=== PATIENT | female | born 1960 | race Caucasian/White ===

== ENCOUNTER → 2017-02-18 | Outpatient (REF) | payer BC ==
[2017-02-18 13:12] LABS: PERCENT SATURATION 40.6 % (13.2-37.4); TOTAL IRON BINDING CAPACITY 313 UG/DL (250-450)
[2017-02-20 00:06] LABS: Lyme Disease IgG/IgM Antibodie <0.91 ISR (0.00-0.90); Lyme Disease IgM Ab Quantitati <0.80 index (0.00-0.79)
== END ==
LOC: M LAB REF 12:06
PROVIDERS: ATTEND Internal Medicine
DX: D64.9 Anemia, unspecified (principal); R53.83 Other fatigue; M25.50 Pain in unspecified joint

== ENCOUNTER → 2017-05-02 | Outpatient (CLI) | payer BC ==
[~2017-05-02] VITALS: Ht 167.6 cm; Wt 64.9 kg
[~2017-05-02] MED LIST: DUEX800T PO; LIDOCAINE 2% INJ 100 MG/5 ML SDV (FOR ANES.) As Ordered ONE; NS 1,000 ML IV ONE; OMEP40CA2 PO; PENN1SOL2 TD; PROPOFOL 200 MG/20 ML VIAL As Ordered ONE; SUCR1TA PO; SUCR1TAB56 PO
--- NOTE | 2017-05-02 11:31 | ROOR ---
Patient Name: Meggan Huff Procedure Date: 05/02/2017 11:10 AM Date of : 1960 Age: 56 Room: [facility] Gender: Female Note Status: Finalized Procedure: Upper Endoscopy + Biopsies Indications: Follow-up of Owens's esophagus Providers: Christian Wilson MD Referring MD: Natasha Bergeron DO Requesting Provider: Medicines: Monitored Anesthesia Care Complications: No immediate complications. Procedure: Pre-Anesthesia Assessment: - The heart rate, respiratory rate, oxygen saturations, blood pressure, adequacy of pulmonary ventilation, and response to care were monitored throughout the procedure. The Endoscope was introduced through the mouth, and advanced to the second part of duodenum. The upper GI endoscopy was accomplished without difficulty. The patient tolerated the procedure well. Findings: The Z-line was irregular and was found 35 cm from the incisors. Multiple biopsies were obtained with cold forceps for evaluation to rule out Owens's Esophagus randomly at the gastroesophageal junction. A small hiatal hernia was present. No other significant abnormalities were identified in a careful examination of the stomach. The exam of the duodenum was otherwise normal. Impression: - Z-line irregular, 35 cm from the incisors. - Small hiatal hernia. - Multiple biopsies were obtained at the gastroesophageal junction. - The examination was otherwise normal. Recommendation: - Patient has a contact number available for emergencies. The signs and symptoms of potential delayed complications were discussed with the patient. Return to normal activities tomorrow. Written discharge instructions were provided to the patient. - High fiber diet. - Discharge patient to home. - Continue present medications. - Await pathology results. - Telephone GI clinic for pathology results in 1 week. - Return to referring physician. - The findings and recommendations were discussed with the patient's family. - Repeat upper endoscopy for surveillance based on pathology results. Christian Wilson MD Christian Wilson MD 05/02/2017 11:31:17 AM This report has been signed electronically. Number of Addenda: 0 Note Initiated On: 05/02/2017 11:10 AM Estimated Blood Loss: Estimated blood loss: none.
[2017-05-02 11:50] VITALS: BP 114/68
== END | disposition home or self-care (01) ==
LOC: M OPP 10:47
PROVIDERS: ATTEND Internal Medicine Gastroenterology
DX: K22.70 Barrett's esophagus without dysplasia (principal); K22.8 Other specified diseases of esophagus; K44.9 Diaphragmatic hernia without obstruction or gangrene; K21.9 Gastro-esophageal reflux disease without esophagitis; M17.11 Unilateral primary osteoarthritis, right knee; M16.12 Unilateral primary osteoarthritis, left hip; M19.041 Primary osteoarthritis, right hand; I73.00 Raynaud's syndrome without gangrene; M75.50 Bursitis of unspecified shoulder; M94.0 Chondrocostal junction syndrome [Tietze]; Z79.899 Other long term (current) drug therapy

== ENCOUNTER → 2017-06-28 | Outpatient (REF) | payer BC ==
[~2017-06-28] MED LIST changes: -LIDOCAINE 2% INJ 100 MG/5 ML SDV (FOR ANES.) As Ordered ONE; -NS 1,000 ML IV ONE; -PROPOFOL 200 MG/20 ML VIAL As Ordered ONE
[2017-06-28 18:36] LABS: INR 0.9
== END ==
LOC: M LAB REF 16:34
PROVIDERS: ATTEND Internal Medicine
DX: Z01.812 Encounter for preprocedural laboratory examination (principal)

== ENCOUNTER → 2017-09-06 | Outpatient (REF) | payer BC | LOC: M SMT 12:59 | PROVIDERS: ATTEND Nurse Practitioner Women's Health | DX: N39.0 Urinary tract infection, site not specified (principal) ==

== ENCOUNTER → 2017-11-25 | Outpatient (REF) | payer BC ==
[2017-11-25 12:20] LABS: PERCENT SATURATION 38.3 % (13.2-45.0); TOTAL IRON BINDING CAPACITY 300 UG/DL (250-450)
[2017-11-25 12:24] LABS: VITAMIN B12 LEVEL 1173 PG/ML (247-911)
== END ==
LOC: M LAB REF 11:51
DX: R53.83 Other fatigue (principal)
CPT/HCPCS: 83550

== ENCOUNTER → 2018-01-11 | Outpatient (CLI) | payer BC | LOC: M WHC 08:38 | DX: Z12.31 Encounter for screening mammogram for malignant neoplasm of breast (principal) ==

== ENCOUNTER 2018-03-31 08:42 | Day surgery (SDC) | payer BC ==
[2018-03-31] MEDS: NS 1,000 ML IV (09:12)
[2018-03-31] MEDS ORDERED: PROPOFOL 200 MG/20 ML VIAL As Ordered ×2 (09:51→10:03)
== END 2018-03-31 10:41 | disposition home or self-care (01) ==
LOC: M OPP 08:42
DX: R10.13 Epigastric pain (principal); R12 Heartburn; K22.70 Barrett's esophagus without dysplasia; K22.8 Other specified diseases of esophagus; K44.9 Diaphragmatic hernia without obstruction or gangrene; K21.9 Gastro-esophageal reflux disease without esophagitis; K27.9 Peptic ulcer, site unspecified, unspecified as acute or chronic, without hemorrhage or perforation; M19.90 Unspecified osteoarthritis, unspecified site; M54.89 Other dorsalgia; I73.00 Raynaud's syndrome without gangrene; R06.83 Snoring; Z96.641 Presence of right artificial hip joint; Z79.899 Other long term (current) drug therapy; Z80.8 Family history of malignant neoplasm of other organs or systems
CPT/HCPCS: 43239

== ENCOUNTER → 2019-01-03 | Outpatient (REF) | payer BC ==
[2019-01-03 13:43] LABS: PERCENT SATURATION 39.8 % (13.2-45.0)
== END ==
LOC: M LAB REF 12:37
PROVIDERS: ATTEND Internal Medicine
DX: Z83.2 Family history of diseases of the blood and blood-forming organs and certain disorders involving the immune mechanism (principal)

== ENCOUNTER → 2019-01-12 | Outpatient (CLI) | payer BC ==
--- NOTE | 2019-01-12 10:39 | REPMRS ---
Patient History The patient states she had a clinical breast exam in 01/16 No known family history of cancer. Benign ultrasound-guided core biopsy of the right breast. Took estrogen for 3 years. 3D TOMOSYNTHESIS WAS PERFORMED. Digital Woman Screen Mammo: January 12, 2019 - Exam #: [id number] Bilateral CC and MLO view(s) were taken. Technologist: Danielle Puri, Technologist Prior study comparison: January 11, 2018, digital woman screen mammo performed at [facility]. September 21, 2016, digital woman screen mammo performed at [facility]. FINDINGS: The breast tissue is heterogeneously dense. This may lower the sensitivity of mammography. There has been no change in the appearance of the mammogram from the prior studies. There is a moderate amount of residual fibroglandular tissue which is fairly symmetric. There is no interval development of dominant mass, areas of architectural distortion, or clustered microcalcification typical of malignancy. Assessment: BI-RADS/ACR category 1 mammogram. Negative Mammogram. Recommendation Routine screening mammogram in 1 year (for women over age 40). This mammogram was interpreted with the aid of an FDA-approved computer-aided dectection system. Electronically Signed By: Flash Alcaraz MD 01/12/19 1038
== END ==
LOC: M WHC 09:30
PROVIDERS: ATTEND Nurse Practitioner Women's Health
DX: Z12.31 Encounter for screening mammogram for malignant neoplasm of breast (principal); Z92.23 Personal history of estrogen therapy; Z86.018 Personal history of other benign neoplasm

== ENCOUNTER → 2019-06-19 | Outpatient (REF) | payer BC ==
[2019-06-19 11:47] LABS: BASO # 0.1 10^3/uL (0.0-0.2); BASO % 0.7 % (0.0-1.0); EOS # 0.2 10^3/uL (0.0-0.50); EOS % 2.9 % (0.0-3.0); HEMATOCRIT 43.9 % (36.0-47.0); HEMOGLOBIN 14.7 g/dl (12.0-15.5); LYMPH # 2.3 10^3/uL (1.5-4.5); LYMPH % 31.8 % (24.0-44.0); MEAN CORPUSCULAR HGB CONC 33.5 g/dl (32.0-36.5); MEAN CORPUSCULAR VOLUME 98.7 fl (80.0-96.0); MONO # 0.6 10^3/uL (0.0-0.8); MONO % 8.3 % (0.0-5.0); NEUTROPHILS # 4.1 10^3/uL (1.8-7.7); PLATELET COUNT, AUTOMATED 309 10^3/uL (150-450); RED BLOOD COUNT 4.45 10^6/uL (4.00-5.40); WHITE BLOOD COUNT 7.4 10^3/uL (4.0-10.0)
[2019-06-19 12:11] LABS: C REACTIVE PROTEIN QUANTITATIV < 0.30 MG/DL (0.00-0.30); RHEUMATOID FACTOR QUANT < 10.0 IU/ML (<15.0); URIC ACID 4.9 MG/DL (2.6-6.0)
[2019-06-19 12:29] LABS: ERYTHROCYTE SEDIMENTATION RATE 6 mm/hr (0-30)
[2019-06-26 00:06] LABS: ANTINUCLEAR ANTIBODIES DIRECT Negative (Negative); HLA-B27 Negative (.); Lyme Disease IgG/IgM Antibodie <0.91 ISR (0.00-0.90); Lyme Disease IgM Ab Quantitati <0.80 index (0.00-0.79)
== END ==
LOC: M LABDRAW1 09:41
PROVIDERS: ATTEND Physician Assistant Medical
DX: M18.11 Unilateral primary osteoarthritis of first carpometacarpal joint, right hand (principal)

== ENCOUNTER 2019-07-10 08:09 | Outpatient (RCR) | payer BC | END 2019-07-28 | LOC: M OT 08:09 | PROVIDERS: ATTEND Physician Assistant Medical | DX: Z47.89 Encounter for other orthopedic aftercare (principal); M19.041 Primary osteoarthritis, right hand ==

== ENCOUNTER 2019-12-11 09:31 | Emergency (ER) | payer BC ==
[~2019-12-11] VITALS: Ht 167.6 cm; Wt 68.7 kg
[~2019-12-11 09:31] MED LIST changes: -OMEP40CA2 PO; +OMEP40CA97 PO
[2019-12-11 10:48] LABS: BASO # 0.1 10^3/uL (0.0-0.2); BASO % 0.7 % (0.0-1.0); EOS # 0.2 10^3/uL (0.0-0.5); HEMATOCRIT 41.3 % (36.0-47.0); HEMOGLOBIN 14.2 g/dl (12.0-15.5); LYMPH # 2.5 10^3/uL (1.5-5.0); LYMPH % 32.4 % (24.0-44.0); MEAN CORPUSCULAR HEMOGLOBIN 32.4 pg (27.0-33.0); MEAN CORPUSCULAR HGB CONC 34.4 g/dl (32.0-36.5); MEAN CORPUSCULAR VOLUME 94.3 fl (80.0-96.0); MONO # 0.8 10^3/uL (0.0-0.8); MONO % 10.2 % (0.0-5.0); NEUTROPHILS # 4.2 10^3/uL (1.5-8.5); NEUTROPHILS % 54.6 % (36.0-66.0); PLATELET COUNT, AUTOMATED 272 10^3/uL (150-450); RED BLOOD COUNT 4.38 10^6/uL (4.00-5.40); WHITE BLOOD COUNT 7.6 10^3/uL (4.0-10.0)
[2019-12-11 11:08] LABS: ERYTHROCYTE SEDIMENTATION RATE 5 mm/hr (0-30)
[2019-12-11 11:22] LABS: BLOOD UREA NITROGEN 17 MG/DL (7-18); C REACTIVE PROTEIN QUANTITATIV < 0.30 MG/DL (0.00-0.30); CALCIUM LEVEL 9.4 MG/DL (8.5-10.1); CARBON DIOXIDE LEVEL 28 MEQ/L (21-32); CHLORIDE LEVEL 102 MEQ/L (98-107); CK-MB VALUE MASS 1.5 NG/ML (<3.6); CPK CREATINE PHOSPHOKINASE 89 U/L (26-192); CREATININE FOR GFR 0.72 MG/DL (0.55-1.30); GLOMERULAR FILTRATION RATE > 60.0 (>51); GLUCOSE, FASTING 99 MG/DL (70-100); MB/CK RELATIVE INDEX 1.69 (< OR =4); POTASSIUM SERUM 4.4 MEQ/L (3.5-5.1); SODIUM LEVEL 136 MEQ/L (136-145); TROPONIN I < 0.02 NG/ML (< 0.10)
--- NOTE | 2019-12-11 12:09 | REP ---
CHEST, TWO VIEWS: There is no evidence of acute infiltrate. No pleural effusion is seen. The heart is normal in size. The mediastinal silhouette is unremarkable. The visualized osseous structures are intact. IMPRESSION: No acute pulmonary disease. Electronically Signed by Flash Alcaraz MD 12/11/2019 07:21 P
[2019-12-11 12:29] VITALS: BP 101/61
[2019-12-11] MEDS ORDERED: OMEP40CA97 PO (12:30)
--- NOTE | 2019-12-12 10:02 | ECGEPIP ---
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
== END 2019-12-11 12:39 | disposition home or self-care (01) ==
LOC: M ED 10:27
DX: R07.9 Chest pain, unspecified (principal); K21.9 Gastro-esophageal reflux disease without esophagitis

== ENCOUNTER → 2020-01-07 | Outpatient (REF) | payer BC ==
[2020-01-07 13:40] LABS: PERCENT SATURATION 45.9 % (13.2-45.0)
== END ==
LOC: M LAB REF 12:27
PROVIDERS: ATTEND Internal Medicine
DX: Z83.2 Family history of diseases of the blood and blood-forming organs and certain disorders involving the immune mechanism (principal)

== ENCOUNTER → 2020-01-17 | Outpatient (CLI) | payer BC ==
--- NOTE | 2020-01-17 14:13 | REPMRS ---
Patient History The patient states she had a clinical breast exam in December 2019.No known family history of cancer. Benign ultrasound-guided core biopsy of the right breast. Took estrogen for 3 years. Digital Woman Screen Mammo: January 17, 2020 - Exam #: [id number] Bilateral CC and MLO view(s) were taken. Technologist: Ruth Hebert, Technologist Prior study comparison: January 12, 2019, bilateral digital woman screen mammo performed at [facility]. January 11, 2018, digital woman screen mammo performed at [facility]. September 21, 2016, digital woman screen mammo performed at [facility]. FINDINGS: The breast tissue is heterogeneously dense. This may lower the sensitivity of mammography. There is a moderate amount of heterogeneously dense fibroglandular tissue which is fairly symmetric. There is no interval development of dominant mass, architectural distortion, or grouped microcalcification typical of malignancy. There has been no change in the appearance of the mammogram from the prior studies. 3-D tomosynthesis shows no additional findings. Assessment: BI-RADS/ACR category 1 mammogram. Negative Mammogram. Recommendation Routine screening mammogram of both breasts in 1 year (for women over age 40). This patient's Lifetime Breast Cancer RIsk is estimated at 7.1 %. This mammogram was interpreted with the aid of an FDA-approved computer-aided dectection system. Electronically Signed By: Eris Anne MD 01/17/20 4079
== END ==
LOC: M WHC 13:45
PROVIDERS: ATTEND Nurse Practitioner Women's Health
DX: Z12.31 Encounter for screening mammogram for malignant neoplasm of breast (principal)

== ENCOUNTER → 2021-01-08 | Outpatient (REF) | payer BC ==
[2021-01-08 12:22] LABS: PERCENT SATURATION 65.6 % (13.2-45.0)
== END ==
LOC: M LAB REF 11:08
PROVIDERS: ATTEND Internal Medicine
DX: D64.9 Anemia, unspecified (principal)

== ENCOUNTER → 2021-01-20 | Outpatient (CLI) | payer BC ==
--- NOTE | 2021-01-20 09:15 | REPMRS ---
Patient History The patient states she has not had a clinical breast exam in over a year. No known family history of cancer. Benign ultrasound-guided core biopsy of the right breast. Took estrogen for 3 years. Digital Woman Screen Mammo: January 20, 2021 - Exam #: [id number] Bilateral CC and MLO view(s) were taken. Technologist: RT Grupo Prior study comparison: January 17, 2020, bilateral digital woman screen mammo performed at [facility]. January 12, 2019, bilateral digital woman screen mammo performed at [facility]. January 11, 2018, digital woman screen mammo performed at [facility]. FINDINGS: The breast tissue is heterogeneously dense. This may lower the sensitivity of mammography. The Volpara volumetric breast density category is: C. There is a moderate amount of heterogeneously dense fibroglandular tissue which is fairly symmetric. There is no interval development of dominant mass, architectural distortion, or grouped microcalcification typical of malignancy. There has been no change in the appearance of the mammogram from the prior studies. 3-D tomosynthesis shows no additional findings. Assessment: BI-RADS/ACR category 1 mammogram. Negative Mammogram. Recommendation Routine screening mammogram of both breasts in 1 year (for women over age 40). This patient's [facility] Lifetime Breast Cancer RIsk is estimated at 6.9 %. This mammogram was interpreted with the aid of an FDA-approved computer-aided dectection system. Electronically Signed By: Eris Anne MD 01/20/21 0914
== END ==
LOC: M WHC 07:44
PROVIDERS: ATTEND Internal Medicine
DX: Z12.31 Encounter for screening mammogram for malignant neoplasm of breast (principal); Z86.018 Personal history of other benign neoplasm

== ENCOUNTER → 2021-03-03 | Outpatient (CLI) | payer BC ==
--- NOTE | 2021-03-03 12:02 | REP ---
INDICATION: LYMPHADENOPATHY. COMPARISON: None. TECHNIQUE: Multiple sonographic images of the left submandibular area. FINDINGS: In the left submandibular area, adjacent to the submandibular gland, there is an ovoid lesion measuring 1.3 x 1.4 x 0.4 cm with an echo lucent cortex an echogenic center compatible with a lymph node. It is upper normal size. No focal fluid collection or mass otherwise. IMPRESSION: There is an upper normal size lymph node in the left submandibular area. <Electronically signed by Flash Klein > 03/03/21 1159
== END ==
LOC: M RAD 10:59
PROVIDERS: ATTEND Internal Medicine
DX: R59.9 Enlarged lymph nodes, unspecified (principal)

== ENCOUNTER → 2021-03-11 | Outpatient (REF) | payer BC ==
[2021-03-11 19:41] LABS: PERCENT SATURATION 38.2 % (13.2-45.0)
== END ==
LOC: M LAB REF 11:24
PROVIDERS: ATTEND Internal Medicine
DX: Z83.2 Family history of diseases of the blood and blood-forming organs and certain disorders involving the immune mechanism (principal)

== ENCOUNTER → 2021-09-08 | Outpatient (CLI) | payer BC ==
[~2021-09-08] MED LIST changes: +OMEP40CA4 PO; -OMEP40CA97 PO
[2021-09-08 13:23] LABS: PLATELET COUNT, AUTOMATED 285 10^3/uL (150-450)
[2021-09-08 13:39] LABS: INR 0.88; PROTHROMBIN TIME 12.3 SECONDS (12.7-14.5)
[2021-09-08 13:40] LABS: COLLAGEN EPINEPHRINE 78 SECONDS (74-162); PARTIAL THROMBOPLASTIN TIME 25.1 SECONDS (25.9-37.0)
== END ==
LOC: M LAB 11:31
PROVIDERS: ATTEND Physician Assistant
DX: M47.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 without myelopathy or radiculopathy, cervical region (principal)

== ENCOUNTER → 2021-10-02 | Outpatient (CLI) | payer BC ==
[~2021-10-02] MED LIST changes: +D31000TA2 PO; +GREE150C PO; +QUERPOW2 XX; +VITA500C24 PO; +ZINC1TAB2 PO
== END ==
LOC: M LABSMTC 10:26
PROVIDERS: ATTEND Anesthesiology
DX: Z01.818 Encounter for other preprocedural examination (principal); Z11.52 Encounter for screening for COVID-19

== ENCOUNTER 2021-10-07 07:03 | Day surgery (SDC) | payer BC ==
[~2021-10-07] VITALS: Ht 167.6 cm; Wt 66.7 kg
[~2021-10-07 07:03] MED LIST changes: +NS 1,000 ML IV ONE
--- OUTSIDE RECORDS SUMMARY | 2021-10-07 07:06 | CCD | Continuity of Care Document ---
Author Author Meggan WILSON M.D. Organization Unknown Address [address] [place] [address] Phone [phone] Care Team Providers Care Reproduction Technician Name Role Phone Natasha Bergeron DO AUTM [phone] Problems Active Problems Provider Date Owens's esophagus Christian Wilson M.D. Onset: 07/10/20 20 Abdominal pain Christian Wilson M.D. Onset: 04/05/20 17 Social History Type Date Description Comments Sex Unknown ETOH Use Occasionally Tobacco Use Start: Unknown Patient has never smoked Allergies and adverse reactions Description No Known Drug Allergies Medications Active Medications SIG Qnty Indications Ordering Provide r Date Omeprazole 40mg Capsules DR 1 cap by mouth every morning 90caps Christian Wilson M.D. 017 Sucralfate 1gm Tablets Unknown Vitamin C 500mg Capsules Unknown D3 High Potency 25mcg (1000 Ut) Ca psules Unknown Zinc 30mg Capsules Unknown Multiple Vitamin Tablets Unknown Immunizations Description No Information Available Vital Signs Date Vital Result Comment 08/18/2021 12:05pm Height 66 inches 5'6" Weight 148.00 lb BP Systolic 117 mmHg BP Diastolic 70 mmHg Heart Rate 64 /min BMI (Body Mass Index) 23.9 kg/m2 Weight 67.133 kg Body Temperature 96.2 F 07/10/2020 11:51am Height 66 inches 5'6" Weight 150.00 lb Temp 97.2 BP Systolic 118 mmHg BP Diastolic 74 mmHg Heart Rate 60 /min BMI (Body Mass Index) 24.2 kg/m2 Weight 68.040 kg Results Description No Information Available Procedures Description No Information Available Medical Devices Description No Information Available Encounters Description No Information Available Assessments Date Code Description Provider 08/18/2021 K22.70 Owens's esophagus without dysp lasia Christian Wilson M.D. Plan of Treatment Future Appointment(s):* 10/07/2021 10:30 am - Christian Wilson M.D. at Main Office 08/18/2021 - Christian Wilson M.D.* K22.70 Owens's esophagus without dysplasia* Comments:* 61 yo wf who presents for a chronic h/o heartburn/intestinal metaplasia. Last scope in 2018. No c/o abdominal pain, weight loss, change in bowel habits, or rectal bleeding. No family h/o colon cancer. No h/o chest pain, or sob. Plan:1. Egd + biopsies.2. Maintain meds. Functional Status Description No Information Available Mental Status Description No Information Available Referrals Description No Information Available
--- OUTSIDE RECORDS SUMMARY | 2021-10-07 07:06 | CCD | Continuity of Care Document ---
Author Author Meggan HART PA-C Organization Unknown Address [address] [address] Phone [phone] Care Team Providers Care Rag Baler Name Role Phone Natasha Bergeron AUTM [phone] Problems Description No Information Available Social History Type Date Description Comments Sex Unknown ETOH Use Occasionally consumes alcohol Tobacco Use Start: Unknown End: Unknown Patient is a former smoker Allergies, Adverse Reactions, Alerts Description No Known Drug Allergies Medications Active Medications SIG Qnty Indications Ordering Provide r Date Omeprazole 40mg Capsules DR 1 by mouth every day Unknown Vitamin D 2000Unit Tablets 1 by mouth every day Unknown Vitamin C 1000MG Unknown 00 Zinc 50mg Tablets 1 by milli th every day Unknown Immunizations Description No Information Available Vital Signs Date Vital Result Comment 07/07/2021 10:48am Body Temperature 96.4 F Height 66.50 inches 5'6.50" Weight 145.12 lb BMI (Body Mass Index) 23.1 kg/m2 06/19/2019 9:23am Body Temperature 97.0 F Height 66.75 inches 5'6.75" Weight 145.00 lb BMI (Body Mass Index) 22.9 kg/m2 Results Description No Information Available Procedures Date Code Description Status 07/31/2021 16601 Office/Outpatient Established Mo d MDM 30-39 Min Completed 07/17/2021 66681 Office/Outpatient Established Mo d MDM 30-39 Min Completed 07/17/2021 81320 Nerve Conduction 9-10 Studies Co mpleted 07/17/2021 24038 Needle Electromyography,Complete Five Or More Muscles Studied Completed 07/07/2021 87341 Office/Outpatient Established Lo w MDM 20-29 Min Completed 07/07/2021 70563 X-Ray Shoulder Complete Complete d Medical Devices Description No Information Available Encounters Type Date Location Provider Dx Diagnosis Office Visit 07/31/2021 10:00a [place] MALAIKA VasquezC 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, cervical region M50.30 Other cervical disc degenera tion, unsp cervical region M54.12 Radiculopathy, cervical jc on R20.2 Paresthesia of skin Office Visit 07/07/2021 10:30a [place] Razia Hart PA-C M79.1 8 Myalgia, other site M47.892 Other spondylosis, cervical region M50.31 Other cervical disc degenera tion, high cervical region M50.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 , mid-cervical rgn, unsp level Assessments Date Code Description Provider 07/31/2021 M47.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 without myelopathy or radiculopathy, cervical region Razia Hart PA-C 07/31/2021 M50.30 Other cervical disc degeneration , unspecified cervical region Razia Hart PA-C 07/31/2021 M54.12 Radiculopathy, cervical region S yl Kennedy Hart PA-C 07/31/2021 R20.2 Paresthesia of skin Razia mg PA-C 07/17/2021 M54.12 Radiculopathy, cervical region H yael Macias MD 07/17/2021 M47.892 Other spondylosis, cervical jc on Fidencio Macias MD 07/17/2021 M50.30 Other cervical disc degeneration , unspecified cervical region Fidencio Macias MD 07/17/2021 R20.2 Paresthesia of skin Fidencio bolivar MD 07/07/2021 M79.18 Myalgia, other site PAWAN Joe-C 07/07/2021 M47.892 Other spondylosis, cervical jc on Razia Kennedy Hart PA-C 07/07/2021 M50.31 Other cervical disc degeneration , high cervical region Razia Hart PA-C 07/07/2021 M50.320 Other cervical disc degeneration, mid-cervical region, unspecified level Razia Hart PA-C Plan of Treatment 07/07/2021 - Razia Hart PA-C* M79.18 Myalgia, other site* Follow up:* after EMG results with [facility]. * M47.892 Other spondylosis, cervical region * M50.31 Other cervical disc degeneration, high cervical region * M50.320 Other cervical disc degeneration, mid-cervical region, unspecified level Functional Status Description No Information Available Mental Status Description No Information Available Referrals Refer to Reason for Referral Status Appt Date Razia Hart PA-C EMG NO AUTH REQUIRED TO SCHEDULING NT Cr eated [facility] [facility], [address] [place] [address] [phone]
--- OUTSIDE RECORDS SUMMARY | 2021-10-07 07:06 | CCD | Continuity of Care Document ---
Author Author Meggan HART PA-C Organization Unknown Address [facility] [address] Phone [phone] Care Team Providers Care Apron Trimmer Name Role Phone Natasha Bergeron AUTM [phone] Problems Description No Information Available Social History [...] Information Available Procedures Date Code Description Status 07/17/2021 56903 Office/Outpatient Established Mo d MDM 30-39 Min Completed 07/17/2021 16834 Nerve Conduction 9-10 Studies Co mpleted 07/17/2021 49085 Needle Electromyography,Complete Five Or More Muscles Studied Completed 07/07/2021 37668 Office/Outpatient Established Lo w MDM 20-29 Min Completed 07/07/2021 18957 X-Ray Shoulder Complete Complete d Medical Devices Description No Information Available Encounters Type Date Location Provider Dx Diagnosis Office Visit 07/07/2021 10:30a [place] Razia Hart PA-C M79.1 8 Myalgia, other site M47.892 Other spondylosis, cervical region M50.31 Other cervical disc degenera tion, high cervical region M50.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 , mid-cervical rgn, unsp level Assessments Date Code Description Provider 07/31/2021 M54.12 Radiculopathy, cervical region S PAWAN Caicedo-C 07/31/2021 M47.892 Other spondylosis, cervical jc on PAWAN Vasquez-C 07/31/2021 M50.30 Other cervical disc degeneration , unspecified cervical region MALAIKA VasquezC 07/31/2021 R20.2 Paresthesia of skin MALAIKA JoeC 07/17/2021 M54.12 Radiculopathy, cervical region H yael Macias MD 07/17/2021 M47.892 Other spondylosis, cervical jc on Fidencio Macias MD 07/17/2021 M50.30 Other cervical disc degeneration , unspecified cervical region Fidencio Macias MD 07/17/2021 R20.2 Paresthesia of skin Fidencio bolivar MD 07/07/2021 M79.18 Myalgia, other site MALAIKA JoeC 07/07/2021 M47.892 Other spondylosis, cervical jc on MALAIKA VasquezC 07/07/2021 M50.31 Other cervical disc degeneration , high cervical region Razia Hart PAMiryamC 07/07/2021 M50.320 Other cervical disc degeneration, mid-cervical region, unspecified level Razia Hart PA-C Plan of Treatment 07/31/2021 - Razia Hart PA-C* M54.12 Radiculopathy, cervical region* New Orders:* HHH Injections, Ordered: 07/31/21 * Follow up:* with [facility] after hhh injections * M47.892 Other spondylosis, cervical region * M50.30 Other cervical disc degeneration, unspecified cervical region * R20.2 Paresthesia of skin Functional Status Description No Information Available Mental Status Description No Information Available Referrals Refer to Dr Reason for Referral Status Appt Date Razia Hart, VICTOR MANUEL EMG NO AUTH REQUIRED TO SCHEDULING NT Cr eated [address] [facility], [address] [place] [address] [phone]
--- OUTSIDE RECORDS SUMMARY | 2021-10-07 07:06 | CCD | Continuity of Care Document ---
Author Author Meggan HART PA-C Organization Unknown Address [address] [address] Phone [phone] Care Team Providers Care Sale Professional Digital Marketing Name Role Phone Natasha Bergeron DO AUTM [phone] Problems Description No Information Available Social History Type Date Description Comments Sex Unknown ETOH Use Occasionally consumes alcohol Tobacco Use Start: Unknown End: Unknown Patient is a former smoker Allergies and adverse reactions Description No Known Drug Allergies Medications Active Medications SIG Qnty Indications Ordering Provide r Date Valium 5mg Tablets take one half hour prior to mri..may repeat in 30 minutes if no effect..do not drive to or from mri 2tabs M47.812 Kar Moreno MD 10/02/[address] 1 by mouth every day Unknown Vitamin D 2000Unit Tablets 1 by mouth every day Unknown Vitamin C 1000MG Unknown 00 Zinc 50mg Tablets 1 by milli th every day Unknown Immunizations Description No Information Available Vital Signs Date Vital Result Comment 09/09/2021 9:26am Body Temperature 97.8 F 07/07/2021 10:48am Body Temperature 96.4 F Height 66.50 inches 5'6.50" Weight 145.12 lb BMI (Body Mass Index) 23.1 kg/m2 Results Test Acquired Date Facility Test Result H/L Range Note Laboratory test finding 09/09/2021 In House Covid Rapid Testing Negative 1 Laboratory test finding 09/08/2021 [facility] [address] [place] [address] [phone])- - Partial Thromboplastin Time <pending> Laboratory test finding 09/08/2021 [facility] [address] [place] [address] (315)- - Platelet Count, Automated 285 10 Normal 150-450 Platelet Function Analysis 09/08/2021 [facility] [address] [place] [address] (315)- - Collagen Epinephrine 78 seconds Normal 74-162 2 PT & Aptt 09/08/2021 [facility] [address] [place] [address] (315)- - Prothrombin Time 12.3 seconds Normal 12.7-14.5 Inr 0.88 Normal 3 Partial Thromboplastin Time 25.1 seconds Normal 25.9-37.0 1 [employer] Covid-19 Antigen T est Lot # [id number] 09/09/21 at 10:35am 2 Results may be affected by p latelet counts less than 150,000/mL or hematocrits less than 35%. If COL/EPI is NORMAL, COL/ADP is not performed. Result Interpretation: COL/EPI COL/ADP NORMAL NORMAL NORMAL ASA ABNORMAL NORMAL vWD ABNORMAL NORMAL GLANZMANN'S ABNORMAL ABNORMAL THROMBASTHENIA POSSIBLE DRUG ABNORMAL ABNORMAL EFFECT 3 THERAPUTIC HUMAN INR VALUES INDICATIONS NORMAL RANGES PROPHYLAXIS/TREATMENT OF: VENOUS THROMBOSIS 2.0-3.0 PULMONARY EMBOLISM 2.0-3.0 PREVENTION OF SYSTEMIC EMBOLISM FROM: TISSUE HEART VALVES 2.0-3.0 ACUTE MYOCARDIAL INFARCTION 2.0-3.0 VALVULAR HEART DISEASE 2.0-3.0 ATRIAL FIBRILLATION 2.0-3.0 MECHANICAL VALVES(HIGH RISK) 2.5-3.5 RECURRENT MYOCARDIAL INFARCTION 2.5-3.5 Procedures Date Code Description Status 09/14/2021 48108 Moderate Sedation Services; Same Phys Each Additional 15 Mins Completed 09/14/2021 74613 Moderate Sedation Se rvices; Same Phys Intl 15 Mins; PT >= 5 Years Completed 09/14/2021 93493 Injec(S),Diag Or The r Agent,Paravert Fac JT W/Imag Cerv Or Thorac Completed 07/31/2021 60236 Office/Outpatient Established Mo d MDM 30-39 Min Completed 07/17/2021 87046 Office/Outpatient Established Mo d MDM 30-39 Min Completed 07/17/2021 20115 Nerve Conduction 9-10 Studies Co mpleted 07/17/2021 75636 Needle Electromyography,Complete Five Or More Muscles Studied Completed 07/07/2021 40957 Office/Outpatient Established Lo w MDM 20-29 Min Completed 07/07/2021 81900 X-Ray Shoulder Complete Complete d Medical Devices Description No Information Available Encounters Type Date Location Provider Dx Diagnosis Office Visit 07/31/2021 10:00a [place] Razia Hart PA-C 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, cervical region M50.30 Other cervical disc degenera tion, unsp cervical region M54.12 Radiculopathy, cervical jc on R20.2 Paresthesia of skin Office Visit 07/07/2021 10:30a [place] Razia Hart PA-C M79.1 8 Myalgia, other site M47.892 Other spondylosis, cervical region M50.31 Other cervical disc degenera tion, high cervical region M50.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 , mid-cervical rgn, unsp level Assessments Date Code Description Provider 10/02/2021 M47.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 without myelopathy or radiculopathy, cervical region Razia Hart PA-C 09/14/2021 M47.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 without myelopathy or radiculopathy, cervical region Fidencio Macias MD 09/09/2021 Z01.818 Encounter for other preprocedura l examination Fidencio Macias MD 09/09/2021 Z01.818 Encounter for other preprocedura l examination Lab 09/09/2021 Z20.828 Contact with and (herring spected) exposure to other viral communicable diseases Fidencio Macias MD 09/09/2021 Z20.828 Contact with and (herring spected) exposure to other viral communicable diseases Lab 09/09/2021 Z20.828 Contact with and (herring spected) exposure to other viral communicable diseases Razia Hart PA-C 07/31/2021 M47.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 without myelopathy or radiculopathy, cervical region Razia Hart PA-C 07/31/2021 M50.30 Other cervical disc degeneration , unspecified cervical region Razia Hart PA-C 07/31/2021 M54.12 Radiculopathy, cervical region S devonte Hart PA-C 07/31/2021 R20.2 Paresthesia of skin Razia mg PA-C 07/17/2021 M54.12 Radiculopathy, cervical region H yale Macias MD 07/17/2021 M47.892 Other spondylosis, cervical jc on Fidencio Macias MD 07/17/2021 M50.30 Other cervical disc degeneration , unspecified cervical region Fidencio Macias MD 07/17/2021 R20.2 Paresthesia of skin Fidencio bolivar MD 07/07/2021 M79.18 Myalgia, other site Razia mg PA-C 07/07/2021 M47.892 Other spondylosis, cervical jc on Razia Hart PA-C 07/07/2021 M50.31 Other cervical disc degeneration , high cervical region Razia Hart PA-C 07/07/2021 M50.320 Other cervical disc degeneration, mid-cervical region, unspecified level Razia Hart PA-C Plan of Treatment 10/02/2021 - Razia Hart PA-C* M47.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 without myelopathy or radiculopathy, cervical region* New Medication:* Valium 5 mg - take one half hour prior to mri..may repeat in 30 minutes if no effect..do not drive to or from mri * New Xrays:* MRI Cervical Spine, Ordered: 10/02/21 * Follow up:* after cervical mri results with [facility] *pt is new to [facility]* Functional Status Description No Information Available Mental Status Description No Information Available Referrals Refer to Dr Reason for Referral Status Appt Date Razia Hart PA-C ZELALEM INJ([id number]) PER EVICORE H KATHY APPROVED TO SURGERY NT Created [address] [place] [address] [phone] Razia Hart PA-C EMG NO AUTH REQUIRED TO SCHEDULING NT Cr eated [address] [place] [address] [phone]
--- OUTSIDE RECORDS SUMMARY | 2021-10-07 07:06 | CCD | Continuity of Care Document ---
Author Author Meggan SCOTT Organization Unknown Address [address] [facility] [address] [place] [address] Phone [phone] Care Team Providers Care Manager Marketing Sales Name Role Phone Natasha Scott DO AUTM Unavailable Fidencio Macias MD AUTM [phone] Problems Active Problems Provider Date Joint pain Natasha Scott DO Onset: 01/19/2013 Social History Type Date Description Comments Sex Unknown ETOH Use Drinks 2 Alcoholic Beverages Per Week Tobacco Use Start: Unknown End: Unknown Patient is a former smoker QUIT AT AGE 46 X 25YRS 1/2 -1 PACK A DAY Allergies and adverse reactions Description No Known Drug Allergies Medications Active Medications SIG Qnty Indications Ordering Provide r Date Fexofenadine HCL 180mg Tablets 1 by mouth every day 30tabs Natasha Scott DO 02/19/2021 Tylenol 8 Hour Arthritis Pain 650mg Tablets ER 1 by mouth as needed every 8 hours 90tabs Natasha Scott DO 01/07/2020 Collagen With Vitamin C 1 po qd Natasha Scott DO 01/03/2019 Vitamin D3 2000Unit Capsules 1 by mouth every day Natasha Scott DO 01/03/[address] 1 by mouth every day as needed 90caps Natasha Scott DO 11/25/2017 Carafate 1gm Tablets one tablet daily before meals as needed Unknown 0 Immunizations CPT Code Status Date Vaccine Reaction Lot # [id number] Given 06/29/2012 Adacel- Tetanus Diphtheria Pertussis [id number] Given 06/27/2012 PPD 06/29/12 PPD READING 0MM / PC [id number] Refused 11/05/2013 Fluvirin Virus Vaccine Vital Signs Date Vital Result Comment 02/19/2021 8:19am BP Systolic 102 mmHg BP Diastolic 70 mmHg Height 66.5 inches 5'6.50" Weight 151.00 lb BMI (Body Mass Index) 24.0 kg/m2 01/08/2021 8:00am BP Systolic 110 mmHg BP Diastolic 60 mmHg Heart Rate 60 /min Height 66.5 inches 5'6.50" Weight 152.00 lb O2 % BldC Oximetry 96 % RM Air BMI (Body Mass Index) 24.2 kg/m2 Results Test Acquired Date Facility Test Result H/L Range Note Laboratory test finding 09/08/2021 [facility] [address] [place] [address] [phone] Platelet Count, Automated 285 10 Normal 150-45 0 PT & Aptt 09/08/2021 [facility] nter [address] [place] [address] [phone] Prothrombin Time 12.3 seconds Normal 12.7-14.5 Inr 0.88 Normal 1 Partial Thromboplastin Time 25.1 seconds Normal 25.9-37.0 Platelet Function Analysis 09/08/2021 [facility] [address] [place] [address] [phone] Collagen Epinephrine 78 seconds Normal 74-162 2 1 THERAPUTIC HUMAN INR VALUES INDICATIONS NORMAL RANGES PROPHYLAXIS/TREATMENT OF: VENOUS THROMBOSIS 2.0-3.0 PULMONARY EMBOLISM 2.0-3.0 PREVENTION OF SYSTEMIC EMBOLISM FROM: TISSUE HEART VALVES 2.0-3.0 ACUTE MYOCARDIAL INFARCTION 2.0-3.0 VALVULAR HEART DISEASE 2.0-3.0 ATRIAL FIBRILLATION 2.0-3.0 MECHANICAL VALVES(HIGH RISK) 2.5-3.5 RECURRENT MYOCARDIAL INFARCTION 2.5-3.5 2 Results may be affected by p latelet counts less than 150,000/mL or hematocrits less than 35%. If COL/EPI is NORMAL, COL/ADP is not performed. Result Interpretation: COL/EPI COL/ADP NORMAL NORMAL NORMAL ASA ABNORMAL NORMAL vWD ABNORMAL NORMAL GLANZMANN'S ABNORMAL ABNORMAL THROMBASTHENIA POSSIBLE DRUG ABNORMAL ABNORMAL EFFECT Procedures Date Code Description Status 01/20/2021 24744312 Mammogram Completed 01/24/2019 573841475 Diabetic Retinal Eye Exam Comple radha 01/12/2019 88127372 Mammogram Completed 09/21/2016 [id number] Mammogram Completed 12/04/2014 87188753 Colonoscopy Completed Medical Devices Description No Information Available Encounters Description No Information Available Assessments Description No Information Available Plan of Treatment Future Appointment(s):* 01/14/2022 8:00 am - Natasha Scott DO at [facility] 02/19/2021 - Natasha Scott DO* R59.1 Generalized enlarged lymph nodes * I73.00 Raynaud's syndrome without gangrene * K21.9 Gastro-esophageal reflux disease without esophagitis * E78.5 Hyperlipidemia, unspecified * R73.01 Impaired fasting glucose * J30.9 Allergic rhinitis, unspecified * All * New Medication:* Fexofenadine HCL 180 mg - 1 by mouth every day Functional Status Description No Information Available Mental Status Description No Information Available Referrals Description No Information Available
--- OUTSIDE RECORDS SUMMARY | 2021-10-07 07:06 | CCD | Continuity of Care Document ---
Author Author Meggan ZAMUDIO MD Organization Unknown Address [address] [place] [address], [address] [address] Phone [phone] Care Team Providers Care Nail Technician Teacher Name Role Phone Natasha Bergeron DO AUTM [phone] Problems Description No Information Available Social History [...] Testing Negative 1 Laboratory test finding 09/08/2021 [facility] [address] [place] [address] (315)- - Partial Thromboplastin Time <pending> Laboratory test finding 09/08/2021 [facility] [address] [place] [address] (315)- - Platelet Count, Automated 285 10 Normal 150-450 Platelet Function Analysis 09/08/2021 [facility] [address] [place] [address] (315)- - Collagen Epinephrine 78 seconds Normal 74-162 2 PT & Aptt 09/08/2021 [facility] [address] [place] [address] (315)- - Prothrombin Time 12.3 seconds Normal 12.7-14.5 Inr 0.88 Normal 3 Partial Thromboplastin Time 25.1 seconds Normal 25.9-37.0 1 [employer] Covid-19 Antigen T est Lot # [id number] 09/09/21 at 10:35am 2 Results may be [...] INFARCTION 2.5-3.5 Procedures Date Code Description Status 07/31/2021 54744 Office/Outpatient Established Mo d MDM 30-39 Min Completed 07/17/2021 97886 Office/Outpatient Established Mo d MDM 30-39 Min Completed 07/17/2021 68990 Nerve Conduction 9-10 Studies Co mpleted 07/17/2021 47435 Needle Electromyography,Complete Five Or More Muscles Studied Completed 07/07/2021 89225 Office/Outpatient Established Lo w MDM 20-29 Min Completed 07/07/2021 57806 X-Ray Shoulder Complete Complete d Medical Devices Description No Information Available Encounters Type Date Location Provider Dx Diagnosis Office Visit 07/31/2021 10:00a [place] Ch PA-C 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, cervical region M50.30 Other cervical disc degenera tion, unsp cervical region M54.12 Radiculopathy, cervical jc on R20.2 Paresthesia of skin Office Visit 07/07/2021 10:30a [place] Razia Ch PA-C M79.1 8 Myalgia, other site M47.892 Other spondylosis, cervical region M50.31 Other cervical disc degenera tion, high cervical region M50.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 , mid-cervical rgn, unsp level Assessments Date Code Description Provider 09/09/2021 Z01.818 Encounter for other preprocedura l examination Fidencio Zamudio MD 09/09/2021 Z01.818 Encounter for other preprocedura l examination Lab 09/09/2021 Z20.828 Contact with and (herring spected) exposure to other viral communicable diseases Fidencio Zamudio MD 09/09/2021 Z20.828 Contact with and (herring spected) exposure to other viral communicable diseases Lab 09/09/2021 Z20.828 Contact with and (herring spected) exposure to other viral communicable diseases PAWAN Vasquez-C 07/31/2021 M47.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 without myelopathy or radiculopathy, cervical region Razia Kennedy Ch PA-C 07/31/2021 M50.30 Other cervical disc degeneration , unspecified cervical region Razia Kennedy Ch PA-C 07/31/2021 M54.12 Radiculopathy, cervical region S heryl Kennedy Ch PA-C 07/31/2021 R20.2 Paresthesia of skin PAWAN Joe-C 07/17/2021 M54.12 Radiculopathy, cervical region H yael Zamudio MD 07/17/2021 M47.892 Other spondylosis, cervical jc on Fidencio Zamudio MD 07/17/2021 M50.30 Other cervical disc degeneration , unspecified cervical region Fidencio Zamudio MD 07/17/2021 R20.2 Paresthesia of skin Fidencio bolivar MD 07/07/2021 M79.18 Myalgia, other site MALAIKA JoeC 07/07/2021 M47.892 Other spondylosis, cervical jc on Razia Ch PA-C 07/07/2021 M50.31 Other cervical disc degeneration , high cervical region Razia Ch PA-C 07/07/2021 M50.320 Other cervical disc degeneration, mid-cervical region, unspecified level Razia Ch PA-C Plan of Treatment Future Appointment(s):* 10/02/2021 10:45 am - Razia Ch PA-C at [place] 07/31/2021 - Razia Ch PA-C* M47.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 without myelopathy or radiculopathy, cervical region * M50.30 Other cervical disc degeneration, unspecified cervical region * M54.12 Radiculopathy, cervical region* Follow up:* with [facility] after hhh injections * R20.2 Paresthesia of skin Functional Status Description No Information Available Mental Status Description No Information Available Referrals Refer to Dr Reason for Referral Status Appt Date Razia Ch PA-C ZELALEM INJ([id number]) PER EVICORE H KATHY APPROVED TO SURGERY NT Created [address] [facility], [address] [place] [address] [phone] Razia Ch PA-C EMG NO AUTH REQUIRED TO SCHEDULING NT Cr eated [address] [facility], [facility] [address] [place] [address] [phone]
--- OUTSIDE RECORDS SUMMARY | 2021-10-07 07:06 | CCD | Continuity of Care Document ---
Author Author Meggan Shea Organization Unknown Address [address] [address] Phone [phone] Care Team Providers Care Fruit And Vegetable Factory Worker Name Role Phone Natasha Bergeron AUTM [phone] Problems Description No Information Available Social History [...] Testing Negative 1 Laboratory test finding 09/08/2021 [facility] [address] [place] [address] (315)- - Partial Thromboplastin Time <pending> Laboratory test finding 09/08/2021 [facility] [address] [place] [address] (315)- - Platelet Count, Automated 285 10 Normal 150-450 Platelet Function Analysis 09/08/2021 [facility] [address] [place] [address] (315)- - Collagen Epinephrine 78 seconds Normal 74-162 2 PT & Aptt 09/08/2021 [facility] [address] [place] [address] (315)- - Prothrombin Time 12.3 seconds Normal 12.7-14.5 Inr 0.88 Normal 3 Partial Thromboplastin Time 25.1 seconds Normal 25.9-37.0 1 [employer] Covid-19 Antigen T est Lot # [id number] 09/09/21 at 10:35am 2 Results may be [...] 2.5-3.5 Procedures Date Code Description Status 07/31/2021 76783 Office/Outpatient Established Mo d MDM 30-39 Min Completed 07/17/2021 50825 Office/Outpatient Established Mo d MDM 30-39 Min Completed 07/17/2021 03006 Nerve Conduction 9-10 Studies Co mpleted 07/17/2021 71037 Needle Electromyography,Complete Five Or More Muscles Studied Completed 07/07/2021 11172 Office/Outpatient Established Lo w MDM 20-29 Min Completed 07/07/2021 63905 X-Ray Shoulder Complete Complete d Medical Devices Description No Information Available Encounters Type Date Location Provider Dx Diagnosis Office Visit 07/31/2021 10:00a [place] Ch PA-C 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, cervical region M50.30 Other cervical disc degenera tion, unsp cervical region M54.12 Radiculopathy, cervical jc on R20.2 Paresthesia of skin Office Visit 07/07/2021 10:30a [place] Razia Ch PA-C M79.1 8 Myalgia, other [...] exposure to other viral communicable diseases Razia Ch PA-C 07/31/2021 M47.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 without myelopathy or radiculopathy, cervical region Razia Kennedy Ch, PA-C 07/31/2021 M50.30 Other cervical disc degeneration , unspecified cervical region Razia Ch PA-C 07/31/2021 M54.12 Radiculopathy, cervical region S heryl Kennedy Ch, PA-C 07/31/2021 R20.2 Paresthesia of skin Razia [...] Ch PA-C Plan of Treatment Future Appointment(s):* 09/24/2021 2:15 pm - Steve Mcclain at [place] * 09/14/2021 8:30 am - Fidencio Macias MD at [facility] 07/31/2021 - Razia Ch PA-C* M47.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 [...] Status Appt Date Razia Ch PA-C ZELALEM INJ([id number]) PER JEMMA Castro KATHY APPROVED TO SURGERY NT Created [address] [place] [address], [address] [address] [phone] Razia Ch PA-C EMG NO AUTH REQUIRED TO SCHEDULING NT Cr eated [address] [place] [address] [phone]
--- OUTSIDE RECORDS SUMMARY | 2021-10-07 07:06 | CCD | Continuity of Care Document ---
Author Author Meggan ZAMUDIO MD Organization Unknown Address [address] [place] [address], [address] [address] Phone [phone] Care Team Providers Care Marble Setter Helper Name Role Phone Natasha Bergeron DO AUTM [phone] Problems Description No Information Available Social History [...] Testing Negative 1 Laboratory test finding 09/08/2021 [facility] [address] [place] [address] (315)- - Partial Thromboplastin Time <pending> Laboratory test finding 09/08/2021 [facility] [address] [place] [address] (315)- - Platelet Count, Automated 285 10 Normal 150-450 Platelet Function Analysis 09/08/2021 [facility] [address] [place] [address] (315)- - Collagen Epinephrine 78 seconds Normal 74-162 2 PT & Aptt 09/08/2021 [facility] [address] [place] [address] (315)- - Prothrombin Time 12.3 seconds Normal 12.7-14.5 Inr 0.88 Normal 3 Partial Thromboplastin Time 25.1 seconds Normal 25.9-37.0 1 [employer] Covid-19 Antigen T est Lot # [id number] 09/09/21 at 10:35am 2 Results may be [...] 2.5-3.5 Procedures Date Code Description Status 09/14/2021 90648 Moderate Sedation Services; Same Phys Each Additional 15 Mins Completed 09/14/2021 72140 Moderate Sedation Se rvices; Same Phys Intl 15 Mins; PT >= 5 Years Completed 09/14/2021 11991 Injec(S),Diag Or The r Agent,Paravert Fac JT W/Imag Cerv Or Thorac Completed 07/31/2021 36835 Office/Outpatient Established Mo d MDM 30-39 Min Completed 07/17/2021 14648 Office/Outpatient Established Mo d MDM 30-39 Min Completed 07/17/2021 48246 Nerve Conduction 9-10 Studies Co mpleted 07/17/2021 19516 Needle Electromyography,Complete Five Or More Muscles Studied Completed 07/07/2021 88484 Office/Outpatient Established Lo w MDM 20-29 Min Completed 07/07/2021 11250 X-Ray Shoulder Complete Complete d Medical Devices Description No Information Available Encounters Type Date Location Provider Dx Diagnosis Office Visit 07/31/2021 10:00a [place] Ch PA-C 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, cervical region M50.30 Other cervical disc degenera tion, unsp cervical region M54.12 Radiculopathy, cervical jc on R20.2 Paresthesia of skin Office Visit 07/07/2021 10:30a [place] Razia Ch PA-C M79.1 8 Myalgia, other site M47.892 Other spondylosis, cervical region M50.31 Other cervical disc degenera tion, high cervical region M50.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 , mid-cervical rgn, unsp level Assessments Date Code Description Provider 09/14/2021 M47.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 without myelopathy or radiculopathy, cervical region Fidencio Zamudio MD 09/09/2021 Z01.818 Encounter for [...] without myelopathy or radiculopathy, cervical region Razia Ch PA-C 07/31/2021 M50.30 Other cervical disc degeneration , unspecified cervical region Razia Ch PA-C 07/31/2021 M54.12 Radiculopathy, cervical region S devonte Ch PA-C 07/31/2021 R20.2 Paresthesia of skin Razia [...] 10:45 am - Razia Ch PA-C at [place] 07/31/2021 - Razia Ch PA-C* M47.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 [...] Status Appt Date Razia Ch PA-C ZELALEM INJ([id number]) PER JEMMA Castro KATHY APPROVED TO SURGERY NT Created [address] [place] [address], [address] [place] [address] [phone] Razia Ch PA-C EM[facility] NO AUTH REQUIRED TO SCHEDULING NT Cr eated [address] [place] [address], [address] [place] [address] [phone]
--- OUTSIDE RECORDS SUMMARY | 2021-10-07 07:06 | CCD | Continuity of Care Document ---
Author Author Meggan ZAMUDIO MD Organization Unknown Address [address] [place] [address], [address] [address] Phone [phone] Care Team Providers Care Rn Recovery Name Role Phone Natasha Bergeron DO AUTM [phone] Problems Description No Information Available Social History [...] Available Procedures Date Code Description Status 07/17/2021 08941 Office/Outpatient Established Mo d MDM 30-39 Min Completed 07/17/2021 32718 Nerve Conduction 9-10 Studies Co mpleted 07/17/2021 10618 Needle Electromyography,Complete Five Or More Muscles Studied Completed 07/07/2021 30493 Office/Outpatient Established Lo w MDM 20-29 Min Completed 07/07/2021 40948 X-Ray Shoulder Complete Complete d Medical Devices Description No Information Available Encounters Type Date Location Provider Dx Diagnosis Office Visit 07/07/2021 10:30a [place] Razia Ch PA-C M79.1 8 Myalgia, other site M47.892 Other spondylosis, cervical region M50.31 Other cervical disc degenera tion, high cervical region M50.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 , mid-cervical rgn, unsp level Assessments Date Code Description Provider 07/17/2021 M54.12 Radiculopathy, cervical region H yael [...] Ch PA-C Plan of Treatment Future Appointment(s):* 07/31/2021 10:00 am - Razia Ch PA-C at [place] 07/07/2021 - Razia Ch PA-C* M79.18 Myalgia, other site* Follow up:* after EMG results with [facility]. * M47.892 Other spondylosis, cervical region * M50.31 Other cervical disc degeneration, high cervical region * M50.320 Other cervical disc degeneration, mid-cervical region, unspecified level Functional Status Description No Information Available Mental Status Description No Information Available Referrals Refer to Reason for Referral Status Appt Date Razia Ch PA-C [facility] NO AUTH REQUIRED TO SCHEDULING NT Cr eated [address] [facility], [address] [place] [address] [phone]
--- OUTSIDE RECORDS SUMMARY | 2021-10-07 07:07 | CCD ---
Author Author [facility] Organization [facility] Address Unknown Phone Unavailable Care Team Providers Care Activity Manager Name Role Phone Amol Wilson MD Unavailable Unavailable Amol Wilson MD Unavailable Unavailable Amol Wilson MD Unavailable Unavailable Amol Wilson MD Unavailable Unavailable Amol Wilson MD Unavailable Unavailable Amol Wilson MD Unavailable Unavailable Amol Wilson MD Unavailable Unavailable Amol Wilson MD Unavailable Unavailable Amol Wilson MD Unavailable Unavailable Amol Wilson MD Unavailable Unavailable Amol Wilson MD Unavailable Unavailable Amol Wilson MD Unavailable Unavailable Amol Wilson MD Unavailable Unavailable Amol Wilson MD Unavailable Unavailable Amol Wilson MD Unavailable Unavailable Amol Wilson MD Unavailable Unavailable Amol Wilson MD Unavailable Unavailable Amol Wilson MD Unavailable Unavailable Amol Wilson MD Unavailable Unavailable Amol Wilson MD Unavailable Unavailable Amol Wilson MD Unavailable Unavailable Amol Wilson MD Unavailable Unavailable Amol Wilson MD Unavailable Unavailable Amol Wilson MD Unavailable Unavailable Amol Wilson MD Unavailable Unavailable Amol Wilson MD Unavailable Unavailable Amol Wilson MD Unavailable Unavailable Amol Wilson MD Unavailable Unavailable Amol Wilson MD Unavailable Unavailable Amol Wilson MD Unavailable Unavailable Amol Wilson MD Unavailable Unavailable Steve, S Christian Unavailable Unavailable Steve, S Christian MD Unavailable Unavailable Steve, S Christian MD Unavailable Unavailable Steve, S Christian MD Unavailable Unavailable Steve, S Christian MD Unavailable Unavailable Steve, S Christian MD Unavailable Unavailable Steve, S Christian MD Unavailable Unavailable Steve, S Christian MD Unavailable Unavailable Steve, S Christian MD Unavailable Unavailable Steve, S Christian MD Unavailable Unavailable Steve, S Christian MD Unavailable Unavailable Steve, S Christian MD Unavailable Unavailable Steve, S Christian MD Unavailable Unavailable Steve, S Christian MD Unavailable Unavailable Steve, S Christian MD Unavailable Unavailable Steve, S Christian MD Unavailable Unavailable Steve, S Christian MD Unavailable Unavailable Steve, S Christian MD Unavailable Unavailable Steve, S Christian MD Unavailable Unavailable Rubio, Natasha DO Unavailable Unavailable Rubio, Natasha DO Unavailable Unavailable Rubio, Natasha DO Unavailable Unavailable Rubio, Natasha DO Unavailable Unavailable Rubio, Natasha DO Unavailable Unavailable Rubio, Natasha DO Unavailable Unavailable Rubio, Natasha DO Unavailable Unavailable Rubio, Natasha DO Unavailable Unavailable Rubio, Natasha DO Unavailable Unavailable Rubio, Natasha DO Unavailable Unavailable Rubio, Natasha DO Unavailable Unavailable Rubio, Natasha DO Unavailable Unavailable Rubio, Natasha DO Unavailable Unavailable Rubio, Natasha DO Unavailable Unavailable Rubio, Natasha DO Unavailable Unavailable Rubio, Natasha DO Unavailable Unavailable Rubio, Natasha DO Unavailable Unavailable Rubio, Natasha DO Unavailable Unavailable Rubio, Natasha DO Unavailable Unavailable Rubio, Natasha DO Unavailable Unavailable Rubio, Natasha DO Unavailable Unavailable Rubio, Natasha DO Unavailable Unavailable Rubio, Natasha DO Unavailable Unavailable Rubio, Natasha DO Unavailable Unavailable Rubio, Natasha DO Unavailable Unavailable Rubio, Natasha DO Unavailable Unavailable Rubio, Natasha DO Unavailable Unavailable Rubio, Natasha DO Unavailable Unavailable Rubio, Natasha DO Unavailable Unavailable Rubio, Natasha DO Unavailable Unavailable Rubio, Natasha DO Unavailable Unavailable Rubio, Natasha DO Unavailable Unavailable Rubio, Natasha DO Unavailable Unavailable Rubio, Natasha DO Unavailable Unavailable Rubio, Natasha DO Unavailable Unavailable Rubio, Natasha DO Unavailable Unavailable Rubio, Natasha DO Unavailable Unavailable Rubio, Natasha DO Unavailable Unavailable Rubio, Natasha DO Unavailable Unavailable Rubio, Natasha DO Unavailable Unavailable Rubio, Natasha DO Unavailable Unavailable Rubio, Natasha DO Unavailable Unavailable Rubio, Natasha DO Unavailable Unavailable Rubio, Natasha DO Unavailable Unavailable Rubio, Natasha DO Unavailable Unavailable Rubio, Natasha DO Unavailable Unavailable Rubio, Natasha DO Unavailable Unavailable Rubio, Natasha DO Unavailable Unavailable Rubio, Natasha DO Unavailable Unavailable Rubio, Natasha DO Unavailable Unavailable Rubio, Natasha DO Unavailable Unavailable Rubio, Natasha DO Unavailable Unavailable Rubio, Natasha DO Unavailable Unavailable Rubio, Natasha DO Unavailable Unavailable Rubio, Natasha DO Unavailable Unavailable Rubio, Natasha DO Unavailable Unavailable Rubio, Natasha DO Unavailable Unavailable Rubio, Natasha DO Unavailable Unavailable Rubio, Natasha DO Unavailable Unavailable Rubio, Natasha DO Unavailable Unavailable Rubio, Natasha DO Unavailable Unavailable Rubio, Natasha DO Unavailable Unavailable Rubio, Natasha DO Unavailable Unavailable Rubio, Natasha DO Unavailable Unavailable Rubio, Natasha DO Unavailable Unavailable Rubio, Natasha DO Unavailable Unavailable Rubio, Natasha DO Unavailable Unavailable Rubio, Natasha DO Unavailable Unavailable Rubio, Natasha DO Unavailable Unavailable Rubio, Natasha DO Unavailable Unavailable Rubio, Natasha DO Unavailable Unavailable Rubio, Natasha DO Unavailable Unavailable Rubio, Natasha DO Unavailable Unavailable Rubio, Natasha DO Unavailable Unavailable Ch, Razia PA Unavailable Unavailable Ch, Razia PA Unavailable Unavailable Ch, Razia PA Unavailable Unavailable Ch, Razia PA Unavailable Unavailable Ch, Razia PA Unavailable Unavailable Ch, Razia PA Unavailable Unavailable Ch, Razia PA Unavailable Unavailable Ch, Razia PA Unavailable Unavailable Gaurav MARRERO MD Unavailable Unavailable Gaurav MARRERO MD Unavailable Unavailable Gaurav MARRERO MD Unavailable Unavailable Gaurav MARRERO MD Unavailable Unavailable Gaurav MARRERO MD Unavailable Unavailable Gaurav MARRERO MD Unavailable Unavailable Gaurav MARRERO MD Unavailable Unavailable Gaurav MARRERO MD Unavailable Unavailable Gaurav MARRERO MD Unavailable Unavailable Gaurav MARRERO MD Unavailable Unavailable Gaurav MARRERO MD Unavailable Unavailable Gaurav MARRERO MD Unavailable Unavailable Gaurav MARRERO MD Unavailable Unavailable Gaurav MARRERO MD Unavailable Unavailable Gaurav MARRERO MD Unavailable Unavailable Gaurav MARRERO MD Unavailable Unavailable Gaurav MARRERO MD Unavailable Unavailable Gaurav MARRERO MD Unavailable Unavailable Gaurav MARRERO MD Unavailable Unavailable Gaurav MARRERO MD Unavailable Unavailable Gaurav MARRERO MD Unavailable Unavailable Gaurav MARRERO MD Unavailable Unavailable Gaurav MARRERO MD Unavailable Unavailable Gaurav MARRERO MD Unavailable Unavailable Gaurav MARRERO MD Unavailable Unavailable Gaurav MARRERO MD Unavailable Unavailable Gaurav MARRERO MD Unavailable Unavailable Gaurav MARRERO MD Unavailable Unavailable Gaurav MARRERO MD Unavailable Unavailable Gaurav MARRERO MD Unavailable Unavailable Gaurav MARRERO MD Unavailable Unavailable Gaurav MARRERO MD Unavailable Unavailable Gaurav MARRERO MD Unavailable Unavailable Gaurav MARRERO MD Unavailable Unavailable KHAIRALLAH, RAMZI MD Unavailable Unavailable KHAIRALLAH, RAMZI MD Unavailable Unavailable KHAIRALLAH, RAMZI MD Unavailable Unavailable KHAIRALLAH, RAMZI MD Unavailable Unavailable KHAIRALLAH, RAMZI MD Unavailable Unavailable KHAIRALLAH, RAMZI MD Unavailable Unavailable KHAIRALLAH, RAMZI MD Unavailable Unavailable KHAIRALLAH, RAMZI MD Unavailable Unavailable KHAIRALLAH, RAMZI MD Unavailable Unavailable KHAIRALLAH, RAMZI MD Unavailable Unavailable KHAIRALLAH, RAMZI MD Unavailable Unavailable KHAIRALLAH, RAMZI MD Unavailable Unavailable KHAIRALLAH, RAMZI MD Unavailable Unavailable KHAIRALLAH, RAMZI MD Unavailable Unavailable KHAIRALLAH, RAMZI MD Unavailable Unavailable KHAIRALLAH, RAMZI MD Unavailable Unavailable KHAIRALLAH, RAMZI MD Unavailable Unavailable KHAIRALLAH, RAMZI MD Unavailable Unavailable KHAIRALLAH, RAMZI MD Unavailable Unavailable KHAIRALLAH, RAMZI MD Unavailable Unavailable KHAIRALLAH, RAMZI MD Unavailable Unavailable KHAIRALLAH, RAMZI MD Unavailable Unavailable KHAIRALLAH, RAMZI MD Unavailable Unavailable KHAIRALLAH, RAMZI MD Unavailable Unavailable KHAIRALLAH, RAMZI MD Unavailable Unavailable KHAIRALLAH, RAMZI MD Unavailable Unavailable KHAIRALLAH, RAMZI MD Unavailable Unavailable KHAIRALLAH, RAMZI MD Unavailable Unavailable KHAIRALLAH, RAMZI MD Unavailable Unavailable KHAIRALLAH, RAMZI MD Unavailable Unavailable KHAIRALLAH, RAMZI MD Unavailable Unavailable KHAIRALLAH, RAMZI MD Unavailable Unavailable KHAIRALLAH, RAMZI MD Unavailable Unavailable KHAIRALLAH, RAMZI MD Unavailable Unavailable KHAIRALLAH, RAMZI MD Unavailable Unavailable KHAIRALLAH, RAMZI MD Unavailable Unavailable KHAIRALLAH, RAMZI MD Unavailable Unavailable KHAIRALLAH, RAMZI MD Unavailable Unavailable KHAIRALLAH, RAMZI MD Unavailable Unavailable KHAIRALLAH, RAMZI MD Unavailable Unavailable KHAIRALLAH, RAMZI MD Unavailable Unavailable KHAIRALLAH, RAMZI MD Unavailable Unavailable KHAIRALLAH, RAMZI MD Unavailable Unavailable KHAIRALLAH, RAMZI MD Unavailable Unavailable KHAIRALLAH, RAMZI MD Unavailable Unavailable KHAIRALLAH, RAMZI MD Unavailable Unavailable KHAIRALLAH, RAMZI MD Unavailable Unavailable KHAIRALLAH, RAMZI MD Unavailable Unavailable KHAIRALLAH, RAMZI MD Unavailable Unavailable KHAIRALLAH, RAMZI MD Unavailable Unavailable KHAIRALLAH, RAMZI MD Unavailable Unavailable KHAIRALLAH, RAMZI MD Unavailable Unavailable KHAIRALLAH, RAMZI MD Unavailable Unavailable KHAIRALLAH, RAMZI MD Unavailable Unavailable KHAIRALLAH, RAMZI MD Unavailable Unavailable KHAIRALLAH, RAMZI MD Unavailable Unavailable KHAIRALLAH, RAMZI MD Unavailable Unavailable KHAIRALLAH, RAMZI MD Unavailable Unavailable KHAIRALLAH, RAMZI MD Unavailable Unavailable KHAIRALLAH, RAMZI MD Unavailable Unavailable KHAIRALLAH, RAMZI MD Unavailable Unavailable KHAIRALLAH, RAMZI MD Unavailable Unavailable KHAIRALLAH, RAMZI MD Unavailable Unavailable KHAIRALLAH, RAMZI MD Unavailable Unavailable KHAIRALLAH, RAMZI MD Unavailable Unavailable KHAIRALLAH, RAMZI MD Unavailable Unavailable KHAIRALLAH, RAMZI MD Unavailable Unavailable KHAIRALLAH, RAMZI MD Unavailable Unavailable KHAIRALLAH, RAMZI MD Unavailable Unavailable KHAIRALLAH, RAMZI MD Unavailable Unavailable KHAIRALLAH, RAMZI MD Unavailable Unavailable KHAIRALLAH, RAMZI MD Unavailable Unavailable KHAIRALLAH, RAMZI MD Unavailable Unavailable KHAIRALLAH, RAMZI MD Unavailable Unavailable KHAIRALLAH, RAMZI MD Unavailable Unavailable KHAIRALLAH, RAMZI MD Unavailable Unavailable KHAIRALLAH, RAMZI MD Unavailable Unavailable KHAIRALLAH, RAMZI MD Unavailable Unavailable KHAIRALLAH, RAMZI MD Unavailable Unavailable KHAIRALLAH, RAMZI MD Unavailable Unavailable KHAIRALLAH, RAMZI MD Unavailable Unavailable KHAIRALLAH, RAMZI MD Unavailable Unavailable KHAIRALLAH, RAMZI MD Unavailable Unavailable KHAIRALLAH, RAMZI MD Unavailable Unavailable KHAIRALLAH, RAMZI MD Unavailable Unavailable KHAIRALLAH, RAMZI MD Unavailable Unavailable KHAIRALLAH, RAMZI MD Unavailable Unavailable KHAIRALLAH, RAMZI MD Unavailable Unavailable Re-disclosure Warning The records that you are about to access may contain information from federally-assisted alcohol or drug abuse programs. If such information is present, then the following federally mandated warning applies: This information has been disclosed to you from records protected by federal confidentiality rules (42 CFR part 2). The federal rules prohibit you from making any further disclosure of this information unless further disclosure is expressly permitted by the written consent of the person to whom it pertains or as otherwise permitted by 42 CFR part 2. A general authorization for the release of medical or other information is NOT sufficient for this purpose. The Federal rules restrict any use of the information to criminally investigate or prosecute any alcohol or drug abuse patient.The records that you are about to access may contain highly sensitive health information, the redisclosure of which is protected by Article 27-F of the [facility] Public Health law. If you continue you may have access to information: Regarding HIV / AIDS; Provided by facilities licensed or operated by the [facility] Office of Mental Health; or Provided by the [facility] Office for People With Developmental Disabilities. If such information is present, then the following [facility] mandated warning applies: This information has been disclosed to you from confidential records which are protected by state law. State law prohibits you from making any further disclosure of this information without the specific written consent of the person to whom it pertains, or as otherwise permitted by law. Any unauthorized further disclosure in violation of state law may result in a fine or residential sentence or both. A general authorization for the release of medical or other information is NOT sufficient authorization for further disc losure. Family History Family Member Name Family Member Gender Family Member Status Date o f Status Description Data Source(s) Unknown Female Problem (finding) 09/28/2017 12:00:00 AM EDT [facility] ([facility]) Unknown Female Problem (finding) 09/28/2017 12:00:00 AM EDT [facility] ([facility]) Unknown Female Problem (finding) 09/28/2017 12:00:00 AM EDT [facility] ([facility]) Unknown Female Problem (finding) 08/04/2012 12:00:00 AM EDT [facility] ([facility]) Unknown Unknown Problem [facility] ([facility]) Unknown Female Problem [facility] ([facility]) Unknown Female Problem [facility]) Unknown Female Problem [facility] ([facility]) Unknown Female Problem [facility] ([facility]) Unknown Female Problem [facility] ([facility]) Unknown Female Problem [facility] ([facility] ) Encounters Encounter Providers Location Date Indications Data Source(s ) Outpatient Attender: Christian Wilson MD Main Office 08/18/2021 11:45:00 AM EDT [facility] ([facility]) Outpatient Attender: Razia VILLALTA Physical Therapy 01/2021 10:00:00 AM EDT [facility] ([facility]) OFFICE OUTPATIENT VISIT 15 MINUTES Attender: Razia VILLALTA Ph ysical Therapy 07/07/2021 10:30:00 AM EDT [facility] ([facility]) Outpatient Attender: JASMIN Marrero/Felipe/Jesus/Payam lew 03/09/2021 11:15:00 AM EDT [facility] ([facility]) Outpatient Attender: Natasha Figueroa 02/19 08:20:00 AM EDT [facility] ([facility] ) Outpatient Attender: Natasha Figueroa 01/08 07:00:00 AM EST [facility] ([facility] ) Attender: MCKAY ROSENBERG MD [facility] 12/09/2020 07:06:00 PM EST - 12/09/2020 07:06:00 PM EST [facility] ( [facility]) Medications Medication Brand Name Start Date Product Form Dose Route Admi nistrative Instructions Pharmacy Instructions Status Indications Reaction Description Data Source(s) Diazepam 5 MG Oral Tablet [Valium] Valium 10/02/2021 12:00:00 AM EDT active [facility] ([facility] ) Fexofenadine hydrochloride 180 MG Oral Tablet Fexofenadine H CL 02/19/2021 12:00:00 AM EDT ORAL active M [facility]ENT ([facility]) Insurance Providers Payer name Policy type / Coverage type Policy ID Covered libertarian ID Covered libertarian's relationship to torres Policy Torres Plan Information [facility] Part B [id number] Family Dependent S [id number] BS [facility] Part B [id number] Family Dependent [id number] BS [facility] [employer] Part [employer] [id number] Family Dependent [id number] BS [facility] [employer] Part B [id number] 2.840.1.661389.3.227.99.991.46976.0 Family Dependent S [id number] BS [facility] [employer] Part B [id number] 2.840.1.809951.3.227.99.991.53216.0 Family Dependent S [id number] BS [facility] [employer] Part B [id number] 2.0.1.439895.3.227.99.991.63837.0 Family Dependent S [id number] BS [facility] [employer] Part B [id number] 2.840.1.723139.3.227.99.991.90481.0 Family Dependent S [id number] BS [facility] [employer] Part B [id number] 2.840.1.099662.3.227.99.991.22475.0 Family Dependent S [id number] BS [facility] [employer] Part B [id number] 2.840.1.061731.3.227.99.991.55611.0 Family Dependent S [id number] BS [facility] [employer] Part B [id number] 2.840.1.954158.3.227.99.991.60266.0 Family Dependent S [id number] BS [facility] [employer] Part B [id number] 2.0.1.494019.3.227.99.991.06282.0 Family Dependent S [id number] BS [facility] [employer] Part B [id number] Family Dependent BS [facility] [employer] Part B [id number] 2.0.1.628776.3.227.99.991.86711.0 Self S [id number] BS [facility] [employer] Part B [id number] 2..1.779950.3.227.99.991.39341.0 Self S [id number] BS [facility] [employer] Part B [id number] 2...655805.3.227.99.991.23362.0 Self S [id number] BS [facility] [employer] Part B [id number] Self [id number] BS [facility] [employer] Part B [id number] 2..1.797663.3.227.99.991.28089.0 Self S [id number] BS [facility] [employer] Part B [id number] Self BS [facility] [employer] Part B [id number] Self [id number] BS [facility] [employer] Part B [id number] 2..1.559326.3.227.99.991.28737.0 Self S [id number] BS [facility] [employer] Part B [id number] 2..1.494006.3.227.99.991.99723.0 Self S [id number] BS [facility] Part B [id number] 2.0.1.230644.3.227.99.991.50738.0 Self S [id number] BS [facility] Part B [id number] 2.0.1.783801.3.227.99.991.78935.0 Self S [id number] BS [facility] Part B [id number] 2.0.1.259892.3.227.99.991.25108.0 Self S [id number] [employer] [facility] [id number] 2.0.1.641769.3.227.99.991.03718.0 Family Dependent 1 [id number] [employer] [facility] [id number] Family Dependent [id number] [employer] [facility] [id number] Family Dependent [id number] [employer] [facility] [id number] 2..1.166043.3.227.99.991.10630.0 Family Dependent 1 [id number] [employer] [facility] [id number] 2.0.1.369645.3.227.99.991.09378.0 Family Dependent 1 [id number] [employer] [facility] [id number] 2.0.1.166591.3.227.99.991.78971.0 Family Dependent 1 [id number] [employer] [facility] [id number] 2.0.1.343608.3.227.99.991.06655.0 Family Dependent 1 [id number] [employer] [facility] Part B [id number] 2..1.757157.3.227.99.991.69999.0 Family Dependent 1 [id number] [employer] [facility] Part B [id number] 2..1.406636.3.227.99.991.58825.0 Family Dependent 1 [id number] [employer] [facility] Part B [id number] 2..1.400320.3.227.99.991.82253.0 Family Dependent 1 [id number] [employer] [facility] Part B [id number] 2..1.575452.3.227.99.991.85687.0 Family Dependent 1 [id number] [employer] [facility] Part B [id number] Family Depen dent BS [employer] [id number] Family Dependent BS [facility] [id number] 2..1.717715.3.227.99.4595.48114.0 Family Dependent [id number] BS [facility] [employer] Part B [id number] 2.1.304356.3.227.99.991.84609.0 V [id number] BS [facility] [employer] Part B [id number] BS [facility] [employer] [id number] BS [facility] Part B [id number] 2.1.046447.3.227.99.991.69915.0 V [id number] BS [facility] [employer] Part B [id number] 2.1.903087.3.227.99.991.32085.0 V [id number] BS [facility] [employer] Part B [id number] .1.601492.3.227.99.991.26141.0 V [id number] BS [facility] Part B [id number] 2.0.1.306967.3.227.99.991.08507.0 V [id number] BS [facility] Part B [id number] 2..1.761573.3.227.99.991.62875.0 V [id number] [facility] [id number] [facility] [id number] 2...282836.3.227.99.991.46961.0 V [id number] [facility] [id number] 2..1.276235.3.227.99.991.10175.0 V [id number] [facility] [id number] 2..1.052038.3.227.99.991.52911.0 V [id number] Blue Cross Blue Shield P [id number] SPOUSE [id number] EXCELLUS H [id number] Self [id number] EXCELLUS H [id number] Spouse [id number] BS [place] [employer] [id number] 2..1.050856.3.227.99.4595.23662.0 Family Dependent [id number] [employer] [place] PPO 302/307 [id number] HU2 [id number] [employer] [place] PPO 302/307 [id number] HU2 [id number] Blue Cross Blue Shield P [id number] SPOUSE [id number] BS [facility] [employer] [id number] 2.0.1.069043.3.227.99.991.96500.0 Family Dependent V [id number] BS [facility] Commercial [id number] Family Dependent [id number] BS [facility] Commercial [id number] 2.0.1.830428.3.227.99.991.94088.0 Family Dependent V [id number] BS [facility] Commercial [id number] 2...800597.3.227.99.991.85520.0 Family Dependent V [id number] BS [facility] Commercial [id number] 2...339910.3.227.99.991.50748.0 Family Dependent V [id number] BS [facility] Commercial [id number] 2...745097.3.227.99.991.27981.0 Family Dependent V [id number] BS [facility] Commercial [id number] 2...749427.3.227.99.991.11384.0 Family Dependent V [id number] BS [facility] Commercial [id number] 2..1.398498.3.227.99.991.18283.0 Family Dependent V [id number] BS [facility] Commercial [id number] Family Dependent [id number] BS [facility] Commercial [id number] 2..1.276962.3.227.99.991.66333.0 Family Dependent V [id number] BS [facility] Commercial [id number] ..1.709731.3.227.99.991.26687.0 Family Dependent V [id number] Blue Cross Blue Shield P [id number] SPOUSE [id number] [employer] [place] PPO 302/307 [id number] HU2 [id number] [facility] Part B [id number] ..1.614405.3.227.99.4595.17148.0 Self [id number] [employer] Commercial [id number] ..1.729275.3.227.99. 1767.1779.0 Family Dependent [id number] [employer] Commercial [id number] ..1.662201.3.227.99. 1767.1779.0 Family Dependent [id number] [employer] Commercial [id number] ..1.932454.3.227.99. 1767.1779.0 Family Dependent [id number] [employer] Commercial [id number] ..1.177085.3.227.99. 1767.1779.0 Family Dependent [id number] BS Of [facility] Commercial [id number] .1.390271.3.227.99.6619.46304.0 Family Dependent [id number] [employer] [place] PPO 302/307 [id number] HU2 [id number] [employer] [place] PPO 302/307 [id number] HU2 [id number] BS [facility] Part B [id number] 2..1.294509.3.227.99.991.33852.0 Family Dependent Y [id number] BS [facility] Part B [id number] 01.13.840.1.407714.3.227.99.991.21844.0 Family Dependent Y [id number] [facility]US [facility] B [id number] P [id number] [employer] HEA [id number] S [id number] ANSI-Commercial [id number] BS [facility] Part B [id number] Family Dependent Y [id number] BS [place] Part B [id number] Family Dependent Y [id number] BS [place] Part B [id number] Family Dependent Y [id number] BLUE CROSS O [id number] SP [id number] BS [place] B [id number] Family Dependent Y [id number] BLUE CROSS O [id number] SP [id number] BS [place] [id number] Family Dependent [id number] BS [place] Part B [id number] Family Dependent Y [id number] SELF PAY 2 UNAVAILABLE 1 UNAVAILA BLE BS [place] Part [facility] [id number] Family Dependent [id number] BS [facility] Part B [id number] Family Dependent Y [id number] BC EXC PLANS 1 [id number] 2 [id number] [place] P[place] 302/307 [id number] HU2 [id number] [place] PPO 302/307 [id number] HU2 [id number] BS [facility] Part B [id number] Family Dependent Y [id number] [facility] [id number] Family Dependent [id number] EXCELL[employer] BCBS B [id number] P VYS [id number] [facility] Part B [id number] Self [id number] [employer] [place] PPO 302/307 [id number] HU2 [id number] [employer] BCBS B [id number] P VYA [id number] [facility] [id number] Family Dependent ANSI-Commercial [id number] Problems, Conditions, and Diagnoses No Information Surgeries/Procedures Procedure Description Date Indications Data Source(s) Injec(S),Diag Or Ther Agent,Paravert Fac JT W/Imag Cerv Or T horac 09/14/2021 12:00:00 AM EDT [facility] Moderate Sedation Services; Same Phys Intl 15 Mins; PT >= 5 Years 09/14/2021 12:00:00 AM EDT [facility] ([facility]) Moderate Sedation Services; Same Phys Each Additional 15 Min s 09/14/2021 12:00:00 AM EDT [facility] ([facility]) OFFICE OUTPATIENT VISIT 15 MINUTES 08/18/2021 12:00:00 AM EDT [facility] ([facility]) OFFICE OUTPATIENT VISIT 25 MINUTES 07/31/2021 12:00:00 AM EDT [facility] ([facility] ) Needle electromyography, each extremity, with related paraspinal areas, when performed, done with nerve conduction, amplitude and latency/velocity study; complete, five or more muscles studied, innervated by three or more nerves or four or more spinal levels (list separately in addition to the code for primary procedure). 07/17/2021 12:00:00 AM EDT [facility] ([facility] ) Nerve Conduction 9-10 Studies 07/17/2021 12:00:00 AM E DT [facility] ([facility] ) OFFICE OUTPATIENT VISIT 25 MINUTES 07/17/2021 12:00:00 AM EDT [facility] ([facility] ) RADEX SHOULDER COMPLETE MINIMUM 2 VIEWS 07/07/2021 12: 00:00 AM EDT [facility] ([facility] ) OFFICE OUTPATIENT VISIT 15 MINUTES 07/07/2021 12:00:00 AM EDT [facility] ([facility] ) OFFICE OUTPATIENT NEW 30 MINUTES 07/07/2021 12:00:00 A M EDT [facility] ([facility] ) Mammogram 01/20/2021 12:00:00 AM EST M [facility] ([facility]) Results ID Date Data Source [id number] 09/09/2021 09:26:00 AM EDT [facility] ([facility] ) Name Value Range Interpretation Code Description Data Maryana rce(s) Supporting Document(s) Covid Rapid Testing Laboratory test result [facility] ([facility] ) [facility] Covid-19 Antigen Test Lot # [id number] 09/09/21 at 10:35am ID Date Data Source [id number] 09/09/2021 12:00:00 AM EDT [facility] Name Value Range Interpretation Code Description Data Maryana rce(s) Supporting Document(s) Covid Rapid Testing Negative [facility] This lab was ordered by [facility] and re ported by [facility]. ID Date Data Source [id number] 09/08/2021 12:41:00 PM EDT [facility] ([facility]) Name Value Range Interpretation Code Description Data Maryana rce(s) Supporting Document(s) Prothrombin Time 12.3 s 12.7-14.5 [facility] ([facility]) Partial Thromboplastin Time 25.1 s 25.9-37.0 [facility] ([facility]) Inr 0.88 [facility] ([facility]) THERAPUTIC HUMAN INR VALUES INDICATIONS NORMAL RANGES PROPHYLAXIS/TREATMENT OF: VENOUS THROMBOSIS 2.0-3.0 PULMONARY EMBOLISM 2.0-3.0 PREVENTION OF SYSTEMIC EMBOLISM FROM: TISSUE HEART VALVES 2.0-3.0 ACUTE MYOCARDIAL INFARCTION 2.0-3.0 VALVULAR HEART DISEASE 2.0-3.0 ATRIAL FIBRILLATION 2.0-3.0 MECHANICAL VALVES(HIGH RISK) 2.5-3.5 RECURRENT MYOCARDIAL INFARCTION 2.5-3.5 ID Date Data Source [id number] 09/08/2021 12:41:00 PM EDT [facility] ([facility]) Name Value Range Interpretation Code Description Data Maryana rce(s) Supporting Document(s) Collagen Epinephrine 78 s 74-162 [facility] ([facility]) Results may be affected by platelet coun ts less than 150,000/mL or hematocrits less than 35%. If COL/EPI is NORMAL, COL/ADP is not performed. Result Interpretation: COL/EPI COL/ADP NORMAL NORMAL NORMAL ASA ABNORMAL NORMAL vWD ABNORMAL NORMAL GLANZMANN'S ABNORMAL ABNORMAL THROMBASTHENIA POSSIBLE DRUG ABNORMAL ABNORMAL EFFECT ID Date Data Source [id number] 09/08/2021 12:41:00 PM EDT [facility] ([facility]) Name Value Range Interpretation Code Description Data Maryana rce(s) Supporting Document(s) Platelets [#/volume] in Blood by Automated count 285 10 150-450 [facility] ([facility]) ID Date Data Source [id number] 09/08/2021 12:41:00 PM EDT [facility] ([facility]) Name Value Range Interpretation Code Description Data Maryana rce(s) Supporting Document(s) Prothrombin time (PT) Laboratory test result [facility] ([facility]) ID Date Data Source [id number] 09/08/2021 12:41:00 PM EDT [facility] ([facility]) Name Value Range Interpretation Code Description Data Maryana rce(s) Supporting Document(s) Collagen Epinephrine 78 s 74-162 [facility] ([facility]) Results may be affected by platelet coun ts less than 150,000/mL or hematocrits less than 35%. If COL/EPI is NORMAL, COL/ADP is not performed. Result Interpretation: COL/EPI COL/ADP NORMAL NORMAL NORMAL ASA ABNORMAL NORMAL vWD ABNORMAL NORMAL GLANZMANN'S ABNORMAL ABNORMAL THROMBASTHENIA POSSIBLE DRUG ABNORMAL ABNORMAL EFFECT ID Date Data Source [id number] 09/08/2021 12:41:00 PM EDT [facility] Name Value Range Interpretation Code Description Data Maryana rce(s) Supporting Document(s) Prothrombin Time 12.3 s 12.7-14.5 [facility] ([facility]) Partial Thromboplastin Time 25.1 s 25.9-37.0 [place] [facility] ([facility]) Inr 0.[address] [facility] THERAPUTIC HUMAN INR VALUES INDICATIONS NORMAL RANGES PROPHYLAXIS/TREATMENT OF: VENOUS THROMBOSIS 2.0-3.0 PULMONARY EMBOLISM 2.0-3.0 PREVENTION OF SYSTEMIC EMBOLISM FROM: TISSUE HEART VALVES 2.0-3.0 ACUTE MYOCARDIAL INFARCTION 2.0-3.0 VALVULAR HEART DISEASE 2.0-3.0 ATRIAL FIBRILLATION 2.0-3.0 MECHANICAL VALVES(HIGH RISK) 2.5-3.5 RECURRENT MYOCARDIAL INFARCTION 2.5-3.5 ID Date Data Source [id number] 09/08/2021 12:41:00 PM EDT [facility] ([facility]) Name Value Range Interpretation Code Description Data Maryana rce(s) Supporting Document(s) Platelets [#/volume] in Blood by Automated count 285 10 150-450 [facility] ([facility]) ID Date Data Source [id number] 03/11/2021 07:55:00 AM EDT [facility] ([facility]) Name Value Range Interpretation Code Description Data Maryana rce(s) Supporting Document(s) Iron (Fe) 108 ug/dL 50-170 [facility]) Total Iron Binding Capacity 283 ug/dL 250-450 [facility] ([facility]) Percent Saturation 38.2 % 13.2-45.0 [facility] ([facility]) ID Date Data Source [id number] 01/08/2021 08:30:00 AM EST [facility] ([facility]) Name Value Range Interpretation Code Description Data Maryana rce(s) Supporting Document(s) Ferritin [Mass/volume] in Serum or Plasma 78 ng/mL 8-252 [facility] ([facility]) ID Date Data Source [id number] 01/08/2021 08:30:00 AM EST [facility] ([facility]) Name Value Range Interpretation Code Description Data Maryana rce(s) Supporting Document(s) Total Iron Binding Capacity 308 ug/dL 250-450 [facility] ([facility]) Iron (Fe) 202 ug/dL 50-170 [facility]) Percent Saturation 65.6 % 13.2-45.0 [facility] ([facility]) ID Date Data Source [id number] 01/08/2021 08:29:00 AM EST [facility] ([facility]) Name Value Range Interpretation Code Description Data Maryana rce(s) Supporting Document(s) Thyrotropin [Units/volume] in Serum or Plasma by Detec tion limit <= 0.05 mIU/L 1.92 uIU/mL 0.36-3.74 [facility] ([facility] ) ID Date Data Source [id number] 01/08/2021 08:29:00 AM EST [facility] ([facility]) Name Value Range Interpretation Code Description Data Maryana rce(s) Supporting Document(s) Triglyceride [Mass/volume] in Serum or Plasma 77 mg/dL 30-150 [facility] ([facility]) Cholesterol [Mass/volume] in Serum or Plasma 198 mg/dL 131-200 [facility] ([facility]) Cholesterol in HDL [Mass/volume] in Serum or Plasma 92 mg/dL 35-60 [facility] ([facility]) Cholesterol in LDL [Mass/volume] in Serum or Plasma by calcu lation 91 CALC 50-159 [facility] ([facility]) ID Date Data Source [id number] 01/08/2021 08:29:00 AM EST [facility] ([facility]) Name Value Range Interpretation Code Description Data Maryana rce(s) Supporting Document(s) Urea nitrogen [Mass/volume] in Serum or Plasma 18 mg/dL 7-18 [facility] ([facility]) Glucose [Mass/volume] in Serum or Plasma 104 mg/dL 74-99 [facility] ([facility]) 100-125 mg/dL PRE-DIABETES/FASTING >126 mg/dL DIABETES/FASTING Sodium [Moles/volume] in Serum or Plasma 141 meq/L 136-145 [facility] ([facility]) Creatinine 0.8 mg/dL 0.6-1.3 [facility] ([facility]) Chloride [Moles/volume] in Serum or Plasma 103 meq/L 98-107 [facility] ([facility]) Potassium [Moles/volume] in Serum or Plasma 5.1 meq/L 3.5-5.1 [facility] ([facility]) Carbon dioxide, total [Moles/volume] in Serum or Plasma 28 meq/L 21 -32 [facility] Alkaline phosphatase isoenzyme [Units/volume] in Serum or Pl asma 71 mg/dL 46-116 [facility] ([facility]) Calcium [Mass/volume] in Serum or Plasma 9.3 mg/dL 8.5-10.1 [facility] ([facility]) Alanine aminotransferase [Enzymatic activity/volume] in Seru m or Plasma 23 U/L 12-78 [facility] ([facility]) Total Bilirubin 0.8 mg/dL 0.2-1.0 [facility] ([facility]) Aspartate aminotransferase [Enzymatic activity/volume] in Serum or Plasma 19 U/L 15-37 [facility] ([facility] ) Albumin [Mass/volume] in Serum or Plasma 4.0 g/dL 3.4-5.0 [facility] ([facility]) Proteinase 3 Ab [Units/volume] in Serum 7.0 g/dL 6.4-8.2 [facility] ([facility]) A/G Ratio 1.33 CALC 1.00-1.90 [facility] Glomerular filtration rate/1.73 sq M pre dicted among non-blacks [Volume Rate/Area] in Serum or Plasma by Creatinine-based formula (MDRD) Laboratory test result [facility] Glomerular filtration rate/1.73 sq M pre dicted among blacks [Volume Rate/Area] in Serum or Plasma by Creatinine-based formula (MDRD) Laboratory test result [facility] <content>CHRONIC KIDNEY DISEASE STAGING PER NKF</content>
<content></content>
<content>STAGE I & II GFR >= 60 NORMAL TO MILDLY DECREASED</content>
<content>STAGE III GFR 30-59 MODERATELY DECREASED</content>
<content>STAGE IV GFR 15-29 SEVERELY DECREASED</content>
<content>STAGE V GFR <15 VERY LITTLE GFR LEFT</content>
<content>ESRD GFR <15 ON REHAB THERAPY MANAGER</content>
<content></content> ID Date Data Source [id number] 01/08/2021 08:29:00 AM EST [facility] Name Value Range Interpretation Code Description Data Maryana rce(s) Supporting Document(s) Erythrocytes [#/volume] in Blood by Automated count 4.44 x10*6/UL 4.2 0-6.30 [facility] Leukocytes [#/volume] in Blood by Automated count 6.8 x10*3/UL 4.1-[address] [facility] Hemoglobin [Mass/volume] in Blood 14.3 g/dL 12.0-18.[address] [facility] ([facility]) MCV 92.0 fL 80.0-97.0 [facility] ([facility]) Hematocrit [Volume Fraction] of Blood by Automated count 40.9 % 3 7.0-51.[address] [facility] ([facility]) MCH 32.2 pg 26.0-32.0 [facility] ([facility]) MCHC 34.9 g/dL 31.0-38.[address] [facility] ([facility]) Erythrocyte distribution width [Ratio] by Automated count 11.8 % 11.6-13.7 [facility] ([facility]) MPV 7.8 FL 7.8-11.0 [facility]) Platelets [#/volume] in Blood by Automated count 304 x10*3/UL 140-440 [facility] ([facility]) Neut % 60.8 % 37.0-92.0 [facility] Mid % 6.8 % 1.7-9.3 [facility] Lymph % 32.4 % 10.0-58.5 [facility] Mid # 0.5 x10*3/UL 0.1-0.6 [facility] ([facility]) Lymph # 2.2 x10*3/UL 0.6-4.1 [facility] ([facility]) Neut # 4.1 x10*3/UL 2.0-7.8 [facility] ([facility]) Procedure Social History No Information Vital Signs ID Date Data Source UNK Name Value Range Interpretation Code Description Data Source(s) Body temperature 97.8 [degF] 97.8 [degF] [facility] ([facility] Body height 66 [in_i] 66 [in_i] [facility] ([facility]) 5'6" Body weight 148.00 [lb_av] 148.00 [lb_av] [facility] ([facility]) Systolic blood pressure 117 mm[Hg] 117 mm[Hg] M [facility] ([facility]) Diastolic blood pressure 70 mm[Hg] 70 mm[Hg] [facility] ([facility]) Heart rate 64 /min 64 /min [facility]) Body mass index (BMI) [Ratio] 23.9 kg/m2 23.9 k g/m2 [facility] ([facility]) Body weight 67.133 kg 67.133 kg [facility] Body temperature 96.2 [degF] 96.2 [degF] [facility] ([facility]) Body weight 145.12 [lb_av] 145.12 [lb_av] [facility] ([facility] ) Body temperature 96.4 [degF] 96.4 [degF] [facility] ([facility]) Body height 66.50 [in_i] 66.50 [in_i] [facility] ([facility]) 5'6.50" Body mass index (BMI) [Ratio] 23.1 kg/m2 23.1 k g/m2 [facility] ([facility]) Body height 66 [in_i] 66 [in_i] [facility] ([facility]) 5'6" Body weight 150.00 [lb_av] 150.00 [lb_av] [facility] ([facility]) Body mass index (BMI) [Ratio] 24.2 kg/m2 24.2 k g/m2 [facility] ([facility]) [place] body weight 130 [lb_av] 130 [lb_av] [facility] ([facility]) Body weight 68.040 kg 68.[address] [facility] ([facility]) Body surface area Derived from formula 1.77 m2 1.[address] [facility] ([facility]) Body height 66 [in_i] 66 [in_i] [facility] ([facility]) 5'6" Body weight 150.00 [lb_av] 150.00 [lb_av] [facility] ([facility]) Body mass index (BMI) [Ratio] 24.2 kg/m2 24.2 k g/m2 [facility] ([facility]) [place] body weight 130 [lb_av] 130 [lb_av] [facility] ([facility]) Body weight 68.040 kg 68.[address] [facility] ([facility]) Body surface area Derived from formula 1.77 m2 1.[address] [facility] ([facility]) Body weight 151.00 [lb_av] 151.00 [lb_av] [facility] ([facility]) Body mass index (BMI) [Ratio] 24.0 kg/m2 24.0 k g/m2 [facility] Diastolic blood pressure 70 mm[Hg] 70 mm[Hg] [facility] ([facility]) Systolic blood pressure 102 mm[Hg] 102 mm[Hg] M [facility] ([facility]) Body height 66.5 [in_i] 66.5 [in_i] [facility] ([facility]) 5'6.50" Heart rate 60 /min 60 /min [facility] ([facility]) Systolic blood pressure 110 mm[Hg] 110 mm[Hg] [facility]) Diastolic blood pressure 60 mm[Hg] 60 mm[Hg] [facility] ([facility]) Body height 66.5 [in_i] 66.5 [in_i] [facility] ([facility]) 5'6.50" Body weight 152.00 [lb_av] 152.00 [lb_av] [facility] ([facility]) Oxygen saturation in Arterial blood by Pulse oximetry 96 % 96 % [facility] ([facility]) Air Body mass index (BMI) [Ratio] 24.2 kg/m2 24.2 k g/m2 [facility] ([facility])
[2021-10-07] MEDS ORDERED: LIDOCAINE 2% 100MG/5ML SDV (FOR ANES.) As Ordered ONE (08:24)
[2021-10-07] MEDS ORDERED: propofoL 200 MG/20 ML VIAL As Ordered ONE (08:24)
--- NOTE | 2021-10-07 08:35 | ROOR ---
Patient Name: Meggan Huff Procedure Date: 10/07/2021 8:19 AM Date of : 1960 Age: 61 Room: [facility] Gender: Female Note Status: Finalized Procedure: Upper Endoscopy + Biopsies Indications: Heartburn, Exclusion of Owens's esophagus Providers: Christian Wilson MD Referring MD: Natasha Bergeron DO Requesting Provider: Medicines: Monitored Anesthesia Care Complications: No immediate complications. Procedure: Pre-Anesthesia Assessment: - The heart rate, respiratory rate, oxygen saturations, blood pressure, adequacy of pulmonary ventilation, and response to care were monitored throughout the procedure. The Endoscope was introduced through the mouth, and advanced to the second part of duodenum. The upper GI endoscopy was accomplished without difficulty. The patient tolerated the procedure well. Findings: The Z-line was variable and was found 40 cm from the incisors. Multiple biopsies were obtained with cold forceps for evaluation to rule out Owens's Esophagus randomly at the gastroesophageal junction. Diffuse mildly erythematous mucosa without bleeding was found on the greater curvature of the stomach. The exam of the duodenum was otherwise normal. Impression: - Z-line variable, 40 cm from the incisors. - Erythematous mucosa in the greater curvature. - Multiple biopsies were obtained at the gastroesophageal junction. - The examination was otherwise normal. Recommendation: - Patient has a contact number available for emergencies. The signs and symptoms of potential delayed complications were discussed with the patient. Return to normal activities tomorrow. Written discharge instructions were provided to the patient. - High fiber diet. - Discharge patient to home. - Follow an antireflux regimen. - Continue present medications. - Await pathology results. - Telephone GI clinic for pathology results in 1 week. - Repeat upper endoscopy in 3 years for surveillance. - Return to referring physician. - The findings and recommendations were discussed with the patient. Procedure Code(s): --- Professional --- 06385, Esophagogastroduodenoscopy, flexible, transoral; with biopsy, single or multiple Diagnosis Code(s): --- Professional --- K22.8, Other specified diseases of esophagus K31.89, Other diseases of stomach and duodenum R12, Heartburn CPT copyright 2019 [employer]. All rights reserved. The codes documented in this report are preliminary and upon decision unit rn review may be revised to meet current compliance requirements. Christian Wilson MD Christian Wilson MD 10/07/2021 8:35:15 AM Electronically signed by Christian Wilson MD Number of Addenda: 0 Note Initiated On: 10/07/2021 8:19 AM Estimated Blood Loss: Estimated blood loss: none.
[2021-10-07 08:53] VITALS: BP 119/66
== END 2021-10-07 08:59 | disposition home or self-care (01) ==
LOC: M OPP 07:03
PROVIDERS: ATTEND Internal Medicine Gastroenterology
DX: K22.89 Other specified disease of esophagus (principal); K31.89 Other diseases of stomach and duodenum; R12 Heartburn; K22.70 Barrett's esophagus without dysplasia; I73.00 Raynaud's syndrome without gangrene; Z79.899 Other long term (current) drug therapy

== ENCOUNTER → 2022-01-20 | Outpatient (REF) | payer BC ==
[~2022-01-20] MED LIST changes: -NS 1,000 ML IV ONE
[2022-01-20 18:37] LABS: PERCENT SATURATION 52.6 % (13.2-45.0)
== END ==
LOC: M LAB REF 16:25
PROVIDERS: ATTEND Internal Medicine
DX: D64.9 Anemia, unspecified (principal)

== ENCOUNTER → 2022-07-20 | Outpatient (CLI) | payer BC ==
[~2022-07-20] MED LIST changes: -D31000TA2 PO; +VITA100093 PO
== END ==
LOC: M WHC 12:53
PROVIDERS: ATTEND Nurse Practitioner Family
DX: R10.2 Pelvic and perineal pain (principal); Z90.710 Acquired absence of both cervix and uterus

== ENCOUNTER → 2022-11-09 | Outpatient (REF) | payer BC | LOC: M LAB REF 16:20 | PROVIDERS: ATTEND Physician Assistant | DX: R30.0 Dysuria (principal) ==

== ENCOUNTER → 2023-02-01 | Outpatient (REF) | payer OTHER, BC ==
[2023-02-01 14:25] LABS: PERCENT SATURATION 45.5 % (13.2-45.0)
[2023-02-01 14:28] LABS: FERRITIN 68.5 NG/ML (7.3-270.7)
== END ==
LOC: M LAB REF 12:09
PROVIDERS: ATTEND Internal Medicine
DX: D64.9 Anemia, unspecified (principal)

== ENCOUNTER → 2023-02-15 | Outpatient (CLI) | payer BC, OTHER | LOC: M WHC 16:41 | PROVIDERS: ATTEND Internal Medicine | DX: Z12.31 Encounter for screening mammogram for malignant neoplasm of breast (principal) ==

== ENCOUNTER → 2024-03-21 | Outpatient (CLI) | payer OTHER | LOC: M WHC 13:26 | PROVIDERS: ATTEND Internal Medicine | DX: Z12.31 Encounter for screening mammogram for malignant neoplasm of breast (principal) ==

== ENCOUNTER 2024-03-28 19:52 | Emergency (ER) | payer OTHER ==
[~2024-03-28] VITALS: Ht 167.6 cm; Wt 69.9 kg
[~2024-03-28 19:52] MED LIST changes: +GREE250C2 PO; +HYDR-643 PO; +NORT10CA2 PO; +ZINC100T3 PO
[2024-03-28 20:46] VITALS: TEMP 97.9
[2024-03-28] MEDS ORDERED: ISOVUE-370 76% 100ML VIAL As Ordered ONE (20:46)
[2024-03-28 20:48] LABS: BASO % 0.4 % (0.0-1.0); EOS # 0.2 10^3/uL (0.0-0.5); EOS % 2.4 % (0.0-3.0); HEMATOCRIT 37.2 % (36.0-47.0); HEMOGLOBIN 12.9 g/dl (12.0-15.5); LYMPH # 2.9 10^3/uL (1.5-5.0); MEAN CORPUSCULAR HEMOGLOBIN 32.8 pg (27.0-33.0); MEAN CORPUSCULAR HGB CONC 34.7 g/dl (32.0-36.5); MEAN CORPUSCULAR VOLUME 94.7 fl (80.0-96.0); MONO # 0.9 10^3/uL (0.0-0.8); MONO % 9.9 % (2.0-8.0); NEUTROPHILS # 5.2 10^3/uL (1.5-8.5); NEUTROPHILS % 56.1 % (36.0-66.0); PLATELET COUNT, AUTOMATED 243 10^3/uL (150-450); RED BLOOD COUNT 3.93 10^6/uL (4.00-5.40); WHITE BLOOD COUNT 9.2 10^3/uL (4.0-10.0)
[2024-03-28 21:00] LABS: INR 0.98; PARTIAL THROMBOPLASTIN TIME 21.7 SECONDS (24.8-34.2); PROTHROMBIN TIME 12.7 SECONDS (12.5-14.5)
[2024-03-28 21:10] LABS: BLOOD UREA NITROGEN 15 MG/DL (9-23); CARBON DIOXIDE LEVEL 21 MMOL/L (20-31); CHLORIDE LEVEL 105 MMOL/L (98-107); CREATININE FOR GFR 0.78 MG/DL (0.55-1.30); GLOMERULAR FILTRATION RATE > 60.0 (>45); GLUCOSE, FASTING 108 MG/DL (74-106); POTASSIUM SERUM 3.7 MMOL/L (3.5-5.1); SODIUM LEVEL 138 MMOL/L (136-145)
[2024-03-28] MEDS: MECLIZINE 25 MG TABLET PO ONE (21:21)
[2024-03-28] MEDS: diazePAM 10MG/2ML SYRINGE IV ONE (22:01)
[2024-03-28] MEDS ORDERED: MECL-118 PO (23:37)
[2024-03-28 23:51] VITALS: BP 121/82; O2SAT 98
== END 2024-03-28 23:53 | disposition home or self-care (01) ==
LOC: M ED 19:52 → EDBD 19:52 → M ED 23:53
DX: H81.399 Other peripheral vertigo, unspecified ear (principal)
CPT/HCPCS: 70450; 70496; 70498; 70551; 71045; 80047; 80048; 85025; 85610; 85730; 93005; 93041; 94760; 96374; 99285; J3360; Q9967

== ENCOUNTER 2024-04-04 09:35 | Day surgery (SDC) | payer OTHER ==
[~2024-04-04] VITALS: Ht 167.6 cm; Wt 65.3 kg
[~2024-04-04 09:35] MED LIST changes: +LIDOCAINE 2% 100MG/5ML SDV (FOR ANES.) As Ordered ONE; +MECL-118 PO; +propofoL 200 MG/20 ML VIAL As Ordered ONE; +propofoL 500 MG/50 ML VIAL As Ordered ONE
[2024-04-04] MEDS: NS 1,000 ML IV ONE (10:01)
[2024-04-04 11:36] VITALS: TEMP 97.2
[2024-04-04 11:50] VITALS: BP 106/65; O2SAT 100
== END 2024-04-04 12:07 | disposition home or self-care (01) ==
LOC: M OPP 09:35
PROVIDERS: ATTEND Internal Medicine Gastroenterology
DX: Z12.11 Encounter for screening for malignant neoplasm of colon (principal); Z12.12 Encounter for screening for malignant neoplasm of rectum; K22.70 Barrett's esophagus without dysplasia; K20.90 Esophagitis, unspecified without bleeding; K64.0 First degree hemorrhoids; K57.30 Diverticulosis of large intestine without perforation or abscess without bleeding; R12 Heartburn; Z90.49 Acquired absence of other specified parts of digestive tract; Z90.710 Acquired absence of both cervix and uterus; I73.00 Raynaud's syndrome without gangrene

== ENCOUNTER → 2024-09-26 | Outpatient (REF) | payer MEDICAID, OTHER ==
[~2024-09-26] MED LIST changes: -LIDOCAINE 2% 100MG/5ML SDV (FOR ANES.) As Ordered ONE; -propofoL 200 MG/20 ML VIAL As Ordered ONE; -propofoL 500 MG/50 ML VIAL As Ordered ONE
== END ==
LOC: M LAB REF 16:23
PROVIDERS: ATTEND Student in an Organized Health Care Education/Training Program
DX: R30.0 Dysuria (principal)

== ENCOUNTER → 2025-01-01 | Outpatient (CLI) | payer OTHER ==
[2025-01-01 11:25] LABS: PLATELET COUNT, AUTOMATED 295 10^3/uL (150-450)
[2025-01-01 11:47] LABS: INR 0.96; PARTIAL THROMBOPLASTIN TIME 25.9 SECONDS (24.8-34.2); PROTHROMBIN TIME 13.1 SECONDS (12.5-14.5)
[2025-01-01 11:52] LABS: COLLAGEN EPINEPHRINE 98 SECONDS (74-162)
== END ==
LOC: M LAB 10:43
PROVIDERS: ATTEND Physician Assistant Surgical
DX: Z01.818 Encounter for other preprocedural examination (principal)

== ENCOUNTER → 2025-04-08 | Outpatient (CLI) | payer OTHER | LOC: M WHC 11:18 | PROVIDERS: ATTEND Physician Assistant | DX: Z12.31 Encounter for screening mammogram for malignant neoplasm of breast (principal) ==